=== PATIENT | female | born 1980 | race Caucasian/White ===

== ENCOUNTER 2020-04-14 11:03 | Emergency (ER) | payer OTHER ==
[2020-04-14 11:30] VITALS: RESP 18
[2020-04-14 11:55] LABS: Appearance,Urine Clear (Clear); Bilirubin,Urine Negative (Negative); Blood,Urine Negative (Negative); Color,Urine Yellow; Glucose,Urine (UA) Negative (Negative); Ketones,Urine Negative (Negative); Leukocyte Esterase,Urine Negative (Negative); Nitrite,Urine Negative (Negative); Protein,Urine Negative (Negative); Specific Gravity,Urine 1.009 (1.001-1.035); Urobilinogen,Urine <2.0 mg/dL (<2.0)
[2020-04-14] MEDS ORDERED: KETOROLAC 15 MG/ML 1 ML VIAL IM STA (12:18)
--- NOTE | 2020-04-14 12:25 | ED ---
General Adult HPI - General Chief complaint: Urogenital Stated complaint: possible UTI Source: patient, RN notes reviewed Mode of arrival: ambulatory Limitations: no limitations - History of Present Illness Initial comments: 39-year-old female presents to the emergency room for a chief complaint of dysuria. Patient states she has had pain with urination for about 2 weeks. Pat ient states she was on Cipro for 3 days and then Macrobid for 7 days. Patient states these are not helping and it is getting worse. Patient denies abdominal pain or back pain. Denies fevers or chills.Patient has no other complaints at this time including shortness of breath, chest pain, abdominal pain, nausea or vomiting, headache, or visual changes. - Related Data Home Medications Medication Instructions Recorded Confirmed Gabapentin [Neurontin] 800 mg PO TID 04/14/20 04/14/20 Nitrofurantoin Macrocrystal 100 mg PO BID 04/14/20 04/14/20 [Nitrofurantoin] Previous Rx's Medication Instructions Recorded Phenazopyridine HCl [Pyridium] 100 mg PO TID #9 tab 04/14/20 Allergies Allergy/AdvReac Type Severity Reaction Status Date / Time No Known Allergies Allergy Verified 04/14/20 12:07 Review of Systems ROS Statement: Those systems with pertinent positive or pertinent negative responses have been documented in the HPI. ROS Other: All systems not noted in ROS Statement are negative. Past Medical History Past Medical History: No Reported History History of Any Multi-Drug Resistant Organisms: None Reported Past Surgical History: Cholecystectomy Additional Past Surgical History / Comment(s): stent in right kidney, left ovary and left fallopian tube removed Past Psychological History: No Psychological Hx Reported Smoking Status: Current every day smoker Past Alcohol Use History: None Reported Past Drug Use History: None Reported General Exam Limitations: no limitations General appearance: alert, in no apparent distress Head exam: Present: atraumatic, normocephalic, normal inspection Eye exam: Present: normal appearance, PERRL, EOMI. Absent: scleral icterus, conjunctival injection ENT exam: Present: normal exam, mucous membranes moist Neck exam: Present: normal inspection, full ROM. Absent: tenderness Respiratory exam: Present: normal lung sounds bilaterally. Absent: respiratory distress, wheezes Cardiovascular Exam: Present: regular rate, normal rhythm, normal heart sounds GI/Abdominal exam: Present: soft, normal bowel sounds. Absent: distended, tenderness External exam: Present: normal external exam, other (Michelle camara present for examination as instructional paraprofessional). Absent: erythema, swelling, lesions, lacerations, ecchymosis Speculum exam: Present: normal speculum exam. Absent: erythema, vaginal discharge, cervical discharge, vaginal bleeding, foreign body, tissue, laceration By manual exam: Present: uterine tenderness. Absent: normal by manual exam, c ervical motion tenderness, adnexal tenderness, adnexal mass, uterine enlargement Neurological exam: Present: alert Course Vital Signs 04/14/20 04/14/20 11:11 12:26 Temperature 97.9 F Pulse Rate 89 75 Respiratory 18 18 Rate Blood Pressure 119/84 144/95 O2 Sat by Pulse 97 97 Oximetry Medical Decision Making - Medical Decision Making Vitals are stable. Patient is well appearing. There is no abdominal tenderness. Pelvic exam appears normal. No external lesions. Her analysis is unremarkable. HCG is negative. Patient was arty [place] 2 rounds of antibiotics. I do not see any obvious evidence of urinary tract infection however culture was sent. I did test patient for gonorrhea chlamydia Trichomonas. Patient does agree to empiric treatment of stds. Patient will be given Pyridium as this did help her a few weeks ago. I will give patient a urology referral as well. She will return here for any worsening symptoms. I discussed this case with attending Dr. Ott who agrees with this assessment and treatment plan. - Lab Data Lab Results 04/14/20 04/14/20 Range/Units 11:40 11:42 Urine Color Yellow Urine Appearance Clear (Clear) Urine pH 7.0 (5.0-8.0) Ur Specific [place] 1.009 (1.001-1.035) Urine Protein Negative (Negative) Urine Glucose (UA) Negative (Negative) Urine Ketones Negative (Negative) Urine Blood Negative (Negative) Urine Nitrite Negative (Negative) Urine Bilirubin Negative (Negative) Urine Urobilinogen <2.0 (<2.0) mg/dL Ur Leukocyte Esterase Negative (Negative) Urine HCG, Qual Not Detected (Not Detectd) Disposition Clinical Impression: Dysuria Disposition: HOME SELF-CARE Condition: Good Instructions (If sedation given, give patient instructions): Dysuria (ED) Additional Instructions: Please take high radium as directed. Please follow-up on culture and testing results. Follow-up with urology. If you have any other worsening symptoms return to the emergency room. Prescriptions: Phenazopyridine HCl [Pyridium] 100 mg PO TID #9 tab Is patient prescribed a controlled substance at d/c from ED?: No Referrals: Courtney Muñoz MD [Primary Care Provider] - 1-2 days Esdras Curry MD [STAFF PHYSICIAN] - 1-2 days Time of Disposition: 12:45
[2020-04-14] MEDS ORDERED: cefTRIAXone 250 MG VIAL IM STA (12:39)
[2020-04-14] MEDS ORDERED: PHENAZOPYRIDINE 100 MG TAB PO STA (13:06)
[2020-04-14] MEDS ORDERED: DOXYCYCLINE 100 MG CAP PO STA (13:06)
[2020-04-14 13:27] VITALS: BP 129/84; PULSE 70; TEMP 97.8
[2020-04-15 13:02] LABS: C. trachomatis,PCR Negative (Neg,Equiv); Chlamydia trachomatis Source Vagina; N. gonorrhoeae,PCR Negative (Neg,Equiv); Neisseria Source Vagina
== END 2020-04-14 13:25 | disposition home or self-care (01) ==
LOC: EC 11:03
DX: R30.0 Dysuria (principal); F17.200 Nicotine dependence, unspecified, uncomplicated; Z79.899 Other long term (current) drug therapy; Z96.0 Presence of urogenital implants
CPT/HCPCS: 81003; 81025; 87808; 87491; 87591; 87086; 99283; 96372 ×2; J0696; J1885

== ENCOUNTER 2020-04-20 19:56 | Emergency (ER) | payer OTHER ==
[2020-04-20 20:17] VITALS: TEMP 98.3
[2020-04-20] MEDS ORDERED: SODIUM CHLORIDE 0.9% 1,000 ML IV STA (20:21)
[2020-04-20] MEDS ORDERED: ONDANSETRON 4 MG/2 ML VIAL IVP STA (20:21)
[2020-04-20] MEDS ORDERED: cefTRIAXone IN SWFI 1,000 MG/10 ML SYRINGE IVP STA (20:46)
--- NOTE | 2020-04-20 21:03 | ED ---
Female Urogenital HPI - General Chief complaint: Urogenital Stated complaint: Female [facility] Time Seen by Provider: 04/20/20 20:19 Source: patient Mode of arrival: ambulatory Limitations: no limitations - History of Present Illness Initial comments: 39-year-old female presents emergency Department with a chief complaint of low back pain and painful urination. She does have history of pyelonephritis and states this feels somewhat like it. Patient reports symptoms ongoing for about 6 weeks. She does report dysuria along with increased urgency or frequency but she also appears to have obstructive urinary symptoms like dribbling and not fully emptying. LMP Was over 2 months ago and there is a possibility for according to the patient. She is not concerned for STDs at this time. She reports being diagnosed with urinary tract infection per primary care physician about 6 weeks ago and was started on Cipro. She was then evaluated in this emergency department and was treated for STDs with Flagyl. Her symptoms are not improved. She denies any hematuria, medication or melena. Denies any vaginal discharge, bleeding, foul smell or itching. Does report some suprapubic abdominal pain. Also reports right-sided lower back pain. Does report chills but no fevers. Denies any nausea vomiting or diarrhea. Denies any chest pain or shortness of breath. She has an appointment with urology and 6 days. Last Menstrual Period: 02/02/20 - Related Data Home Medications Medication Instructions Recorded Confirmed Gabapentin [Neurontin] 800 mg PO TID 04/14/20 04/20/20 Phenazopyridine HCl [Pyridium] 100 mg PO TID PRN 04/20/20 04/20/20 Previous Rx's Medication Instructions Recorded Doxycycline [Vibramycin] 100 mg PO BID 7 Days #14 capsule 04/14/20 Phenazopyridine HCl [Pyridium] 100 mg PO TID #30 tab 04/21/20 Allergies Allergy/AdvReac Type Severity Reaction Status Date / Time No Known Allergies Allergy Verified 04/20/20 23:11 Review of Systems ROS Statement: Those systems with pertinent positive or pertinent negative responses have been documented in the HPI. ROS Other: All systems not noted in ROS Statement are negative. Past Medical History Past Medical History: No Reported History History of Any Multi-Drug Resistant Organisms: None Reported Past Surgical History: Cholecystectomy Additional Past Surgical History / Comment(s): stent in right kidney, left ovary and left fallopian tube removed Past Psychological History: Anxiety Smoking Status: Current every day smoker Past Alcohol Use History: None Reported Past Drug Use History: None Reported General Exam Limitations: no limitations General appearance: alert, in no apparent distress Head exam: Present: atraumatic, normocephalic, normal inspection Eye exam: Present: normal appearance, PERRL, EOMI Pupils: Present: normal accommodation ENT exam: Present: normal exam, normal oropharynx, mucous membranes moist, TM's normal bilaterally, normal external ear exam Neck exam: Present: normal inspection, full ROM. Absent: tenderness Respiratory exam: Present: normal lung sounds bilaterally. Absent: respiratory distress Cardiovascular Exam: Present: regular rate, normal rhythm, normal heart sounds GI/Abdominal exam: Present: soft, tenderness (Mild suprapubic tenderness). Absent: distended, guarding, rebound, rigid Extremities exam: Present: normal inspection, full ROM, normal capillary refill. Absent: tenderness Back exam: Present: normal inspection, full ROM, tenderness, CVA tenderness (R). Absent: CVA tenderness (L) Neurological exam: Present: alert, oriented X3, CN II-XII intact, normal gait Psychiatric exam: Present: normal affect, normal mood Skin exam: Present: warm, dry, intact, normal color Course Vital Signs 04/20/20 20:13 Temperature 98.3 F Pulse Rate 88 Respiratory 18 Rate Blood Pressure 130/89 O2 Sat by Pulse 95 Oximetry Medical Decision Making - Medical Decision Making 39-year-old female presents to emergency Department with chief complaint of dysuria. On physical examination some right CVA tenderness with suprapubic tenderness as well. CBC unremarkable. CMP reveals mild transaminitis. UA is positive for leukocyte esterase, white blood cells on her blood cells with moderate amount of blood. No . CT abdomen and pelvis performed shows a right ovarian cyst. There is a possible urethral diverticulum appears to be new compared to old exam. Unusual cystocele is also possible. Patient was offered pelvic examination, she declined. Medical records reviewed. The patient received a pelvic exam during her most recent visit from about one week ago with no acute findings. I suspect the patient's symptoms are secondary to urethral diverticulum. Patient really has an appointment in 6 days to follow-up with a urologist. Patient was given analgesia and will be discharged with a Tylenol 3 starter pack and Pyridium. Return parameters discussed the patient was understanding ago. Case discussed with - Lab Data Result diagrams: 04/20/20 21:52 04/20/20 21:52 Lab Results 04/20/20 04/20/20 04/20/20 Range/Units 21:17 21:17 21:52 WBC 8.0 (3.8-10.6) k/uL RBC 5.14 (3.80-5.40) m/uL Hgb 13.5 (11.4-16.0) gm/dL Hct 42.1 (34.0-46.0) % MCV 81.9 (80.0-100.0) fL MCH 26.2 (25.0-35.0) pg MCHC 32.0 (31.0-37.0) g/dL RDW 15.3 (11.5-15.5) % Plt Count 215 (150-450) k/uL MPV 8.9 Neutrophils % 55 % Lymphocytes % 32 % Monocytes % 7 % Eosinophils % 4 % Basophils % 0 % Neutrophils # 4.3 (1.3-7.7) k/uL Lymphocytes # 2.6 (1.0-4.8) k/uL Monocytes # 0.5 (0-1.0) k/uL Eosinophils # 0.3 (0-0.7) k/uL Basophils # 0.0 (0-0.2) k/uL Sodium (137-145) mmol/L Potassium (3.5-5.1) mmol/L Chloride (98-107) mmol/L Carbon Dioxide (22-30) mmol/L Anion Gap mmol/L BUN (7-17) mg/dL Creatinine (0.52-1.04) mg/dL Est GFR (CKD-EPI)AfAm (>60 ml/min/1.73 sqM) Est GFR (CKD-EPI)NonAf (>60 ml/min/1.73 sqM) Glucose (74-99) mg/dL Plasma Lactic Acid J Luis (0.7-2.0) mmol/L Calcium (8.4-10.2) mg/dL Total Bilirubin (0.2-1.3) mg/dL AST (14-36) U/L ALT (4-34) U/L Alkaline Phosphatase (38-126) U/L Total Protein (6.3-8.2) g/dL Albumin (3.5-5.0) g/dL Lipase (23-300) U/L Urine Color Yellow Urine Appearance Cloudy H (Clear) Urine pH 6.5 (5.0-8.0) Ur Specific [place] 1.016 (1.001-1.035) Urine Protein Trace H (Negative) Urine Glucose (UA) Negative (Negative) Urine Ketones Negative (Negative) Urine Blood Moderate H (Negative) Urine Nitrite Negative (Negative) Urine Bilirubin Negative (Negative) Urine Urobilinogen 2.0 (<2.0) mg/dL Ur Leukocyte Esterase Large H (Negative) Urine RBC 8 H (0-5) /hpf Urine WBC 14 H (0-5) /hpf Ur Squamous Epith Cells 26 H (0-4) /hpf Urine Bacteria Rare H (None) /hpf Urine Mucus Occasional H (None) /hpf Urine HCG, Qual Not Detected (Not Detectd) 04/20/20 04/20/20 Range/Units 21:52 21:52 WBC (3.8-10.6) k/uL RBC (3.80-5.40) m/uL Hgb (11.4-16.0) gm/dL Hct (34.0-46.0) % MCV (80.0-100.0) fL MCH (25.0-35.0) pg MCHC (31.0-37.0) g/dL RDW (11.5-15.5) % Plt Count (150-450) k/uL MPV Neutrophils % % Lymphocytes % % Monocytes % % Eosinophils % % Basophils % % Neutrophils # (1.3-7.7) k/uL Lymphocytes # (1.0-4.8) k/uL Monocytes # (0-1.0) k/uL Eosinophils # (0-0.7) k/uL Basophils # (0-0.2) k/uL Sodium 136 L (137-145) mmol/L Potassium 4.3 (3.5-5.1) mmol/L Chloride 103 (98-107) mmol/L Carbon Dioxide 26 (22-30) mmol/L Anion Gap 7 mmol/L BUN 10 (7-17) mg/dL Creatinine 0.41 L (0.52-1.04) mg/dL Est GFR (CKD-EPI)AfAm >90 (>60 ml/min/1.73 sqM) Est GFR (CKD-EPI)NonAf >90 (>60 ml/min/1.73 sqM) Glucose 93 (74-99) mg/dL Plasma Lactic Acid J Luis 1.2 (0.7-2.0) mmol/L Calcium 9.3 (8.4-10.2) mg/dL Total Bilirubin 0.7 (0.2-1.3) mg/dL AST 48 H (14-36) U/L ALT 63 H (4-34) U/L Alkaline Phosphatase 203 H (38-126) U/L Total Protein 7.3 (6.3-8.2) g/dL Albumin 3.9 (3.5-5.0) g/dL Lipase 164 (23-300) U/L Urine Color Urine Appearance (Clear) Urine pH (5.0-8.0) Ur Specific [place] (1.001-1.035) Urine Protein (Negative) Urine Glucose (UA) (Negative) Urine Ketones (Negative) Urine Blood (Negative) Urine Nitrite (Negative) Urine Bilirubin (Negative) Urine Urobilinogen (<2.0) mg/dL Ur Leukocyte Esterase (Negative) Urine RBC (0-5) /hpf Urine WBC (0-5) /hpf Ur Squamous Epith Cells (0-4) /hpf Urine Bacteria (None) /hpf Urine Mucus (None) /hpf Urine HCG, Qual (Not Detectd) Disposition Clinical Impression: Urethral diverticulum, Dysuria Disposition: HOME SELF-CARE Condition: Stable Instructions (If sedation given, give patient instructions): Urethral Stent Placement (DC) Additional Instructions: Follow-up with urology. Take prescribed medication as directed. Return to emergency department if symptoms worsen. Prescriptions: Phenazopyridine HCl [Pyridium] 100 mg PO TID #30 tab Is patient prescribed a controlled substance at d/c from ED?: No Referrals: Courtney Muñoz MD [Primary Care Provider] - 1-2 days Time of Disposition: 00:08
[2020-04-20 21:27] LABS: Appearance,Urine Cloudy (Clear); Bacteria,Urine Rare /hpf; Bilirubin,Urine Negative (Negative); Blood,Urine Moderate (Negative); Color,Urine Yellow; Glucose,Urine (UA) Negative (Negative); Ketones,Urine Negative (Negative); Leukocyte Esterase,Urine Large (Negative); Mucus,Urine Occasional /hpf; Nitrite,Urine Negative (Negative); PH, Urine 6.5 (5.0-8.0); Protein,Urine Trace (Negative); RBC,Urine 8 /hpf (0-5); Specific Gravity,Urine 1.016 (1.001-1.035); Squamous Epithelial Cell,Urine 26 /hpf (0-4); WBC,Urine 14 /hpf (0-5)
[2020-04-20] MEDS ORDERED: MORPHINE SULFATE 4 MG/ML SYRINGE IVP STA (21:57)
[2020-04-20 22:19] LABS: Basophils % (A) 0 %; Eosinophils # (A) 0.3 k/uL (0-0.7); Eosinophils % (A) 4 %; HCT 42.1 % (34.0-46.0); HGB 13.5 gm/dL (11.4-16.0); Lymphocytes # (A) 2.6 k/uL (1.0-4.8); Lymphocytes % (A) 32 %; MCH 26.2 pg (25.0-35.0); MCV 81.9 fL (80.0-100.0); Mean Platelet Volume 8.9; Monocytes # (A) 0.5 k/uL (0-1.0); Monocytes % (A) 7 %; Neutrophils # (A) 4.3 k/uL (1.3-7.7); Neutrophils % (A) 55 %; Platelet Count 215 k/uL (150-450); RBC 5.14 m/uL (3.80-5.40); RDW 15.3 % (11.5-15.5)
[2020-04-20 22:38] LABS: ALT 63 U/L (4-34); AST 48 U/L (14-36); African American GFR (CKD) >90 (>60 ml/min/1.73 sqM); Albumin 3.9 g/dL (3.5-5.0); Alkaline Phosphatase 203 U/L (38-126); Anion Gap 7 mmol/L; Blood Urea Nitrogen 10 mg/dL (7-17); Calcium 9.3 mg/dL (8.4-10.2); Carbon Dioxide 26 mmol/L (22-30); Chloride 103 mmol/L (98-107); Glucose 93 mg/dL (74-99); Lipase 164 U/L (23-300); Non-African American GFR(CKD) >90 (>60 ml/min/1.73 sqM); Potassium 4.3 mmol/L (3.5-5.1); Sodium 136 mmol/L (137-145); Total Bilirubin 0.7 mg/dL (0.2-1.3); Total Protein 7.3 g/dL (6.3-8.2)
[2020-04-20] MEDS ORDERED: PHENAZOPYRIDINE 200 MG TAB PO STA (22:59)
--- NOTE | 2020-04-20 23:38 | CT ---
EXAMINATION TYPE: CT abdomen pelvis w con DATE OF EXAM: 04/20/2020 COMPARISON: 11/20/2014 HISTORY: pelvic pain CT DLP: 1292 mGycm Automated exposure control for dose reduction was used. CONTRAST: Performed with IV Contrast, patient injected with 100 mL of Isovue 300. Images obtained from the diaphragm to the floor the pelvis with IV contrast. The lung bases are clear of consolidation. There is no pleural effusion. Spleen is enlarged and measu res 15 cm. Liver is intact. Heart size is normal. There is no pericardial effusion. There are clips from cholecystectomy. There is no pancreatic mass. The stomach is intact. There is no adrenal mass. Kidneys show satisfactory contrast opacification. There is no hydronephrosi s. Ureters are not dilated. There is no retroperitoneal adenopathy. The bladder distends smoothly. There is no inguinal hernia. There is no free fluid in the pelvis. [place] dominic is anteverted. There is 4 cm cyst on the right ovary. There is some cystic fluid collection at th e base of the urinary bladder that could relate to urethral diverticula. This measures 2.2 cm. Lumbar vertebra have normal alignment. There is narrowing of L5-S1 disc space with vacuum disc. There is no compression fracture. The bony pelvis is intact. There is no ascites or free air. There is no bowel obstruction. There is no mesenteric edema. Appendi x is not seen. There is no sign of thickened appendix. IMPRESSION: Mild splenomegaly. Right ovarian cyst. Possible urethral diverticula which appear new compared to old exam. Unusual cystocele also possible.
[2020-04-21] MEDS ORDERED: ACET/COD 300 MG/30 MG STARTER PACK 6 TAB BTL PO STA (00:06)
[2020-04-21] MEDS ORDERED: HYDROmorphone 1 MG/ML 1 ML SYRINGE IVP STA (00:06)
[2020-04-21 00:23] VITALS: BP 133/72; PULSE 75; RESP 16
== END 2020-04-21 00:23 | disposition home or self-care (01) ==
LOC: EC 19:56
DX: N36.1 Urethral diverticulum (principal); F17.200 Nicotine dependence, unspecified, uncomplicated; Z90.49 Acquired absence of other specified parts of digestive tract; Z90.721 Acquired absence of ovaries, unilateral; Z90.79 Acquired absence of other genital organ(s)
CPT/HCPCS: 36415; 80053; 83605; 83690; 85025; 81001; 81025; 87040; 87086; 74177; 99284; 96374; 96375 ×3; 96361 ×2; J2270; J2405; J0696; J1170; Q9967

== ENCOUNTER 2020-11-22 07:33 | Emergency (ER) | payer OTHER ==
[2020-11-22 07:43] VITALS: RESP 18
[2020-11-22] MEDS ORDERED: cefTRIAXone IN SWFI 1,000 MG/10 ML SYRINGE IVP STA ×2 (07:46→08:58)
[2020-11-22] MEDS ORDERED: IBUPROFEN 600 MG TAB PO STA (07:46)
[2020-11-22] MEDS ORDERED: ACETAMINOPHEN TAB 500 MG TAB PO STA (07:46)
[2020-11-22] MEDS ORDERED: SODIUM CHLORIDE 0.9% 1,000 ML IV ONE (07:47)
--- NOTE | 2020-11-22 07:51 | ED ---
General Adult HPI - General Chief complaint: Abdominal Pain Stated complaint: Fever, abd and back pain Time Seen by Provider: 11/22/20 07:35 Source: patient, RN notes reviewed, old records reviewed Mode of arrival: ambulatory Limitations: no limitations - History of Present Illness Initial comments: This is a 40-year-old female presents emergency Department complaining of fever and right CVA tenderness. Patient states she was in rehabilitation for opiate abuse 5 days ago she was diagnosed with UTI never got her antibiotics. Patient states since that time she's continued to feel worse per patient denies any abdominal pain but she does complain of CVA tenderness on the right and urinary frequency as well as a fever. Patient denies any chest pain difficult breathing shortness of breath per patient states she was recently tested for COVID and it was negative. Patient did not get the COVID vaccine. Patient denies any cough patient. Patient denies sore throat patient denies any loss of taste or smell. - Related Data Home Medications Medication Instructions Recorded Confirmed Gabapentin [Neurontin] 800 mg PO TID 04/14/20 04/20/20 Phenazopyridine HCl [Pyridium] 100 mg PO TID PRN 04/20/20 04/20/20 Previous Rx's Medication Instructions Recorded Doxycycline [Vibramycin] 100 mg PO BID 7 Days #14 capsule 04/14/20 Phenazopyridine HCl [Pyridium] 100 mg PO TID #30 tab 04/21/20 Sulfamethox-Tmp 800-160Mg [Bactrim 1 each PO Q12HR #28 tab 11/22/20 DS 800-160 mg] Allergies Allergy/AdvReac Type Severity Reaction Status Date / Time No Known Allergies Allergy Verified 11/22/20 07:39 Review of Systems ROS Statement: Those systems with pertinent positive or pertinent negative responses have been documented in the HPI. ROS Other: All systems not noted in ROS Statement are negative. Past Medical History Past Medical History: No Reported History History of Any Multi-Drug Resistant Organisms: None Reported Past Surgical History: Cholecystectomy Additional Past Surgical History / Comment(s): stent in right kidney, left ovary and left fallopian tube removed Past Psychological History: Anxiety Smoking Status: Current every day smoker Past Alcohol Use History: None Reported Past Drug Use History: None Reported General Exam - General Exam Comments Initial Comments: GENERAL: Patient is well-developed and well-nourished. Patient is nontoxic and well- hydrated and is in mild distress. ENT: Neck is soft and supple. No significant lymphadenopathy is noted. Oropharynx is clear. Moist mucous membranes. Neck has full range of motion without eliciting any pain. EYES: The sclera were anicteric and conjunctiva were pink and moist. Extraocular movements were intact and pupils were equal round and reactive to light. Eyelids were unremarkable. PULMONARY: Unlabored respirations. Good breath sounds bilaterally. No audible rales rhonchi or wheezing was noted. CARDIOVASCULAR: There is a regular rate and rhythm without any murmurs gallops or rubs. ABDOMEN: Soft and nontender with normal bowel sounds. SKIN: Skin is clear with no lesions or rashes and otherwise unremarkable. NEUROLOGIC: Patient is alert and oriented x3. Cranial nerves II through XII are grossly intact. Motor and sensory are also intact. Normal speech, volume and content. Symmetrical smile. MUSCULOSKELETAL: Normal extremities with adequate strength and full range of motion. Patient's right CVA tenderness. LYMPHATICS: No significant lymphadenopathy is noted PSYCHIATRIC: Normal psychiatric evaluation. Limitations: no limitations Course Vital Signs 11/22/20 07:35 Temperature 100.9 F H Pulse Rate 129 H Respiratory 18 Rate Blood Pressure 109/60 O2 Sat by Pulse 95 Oximetry Medical Decision Making - Medical Decision Making Patient's urine shows a urinary tract infection. I gave the patient 2 g of Rocephin. Patient was not vomiting was able to tolerate oral meds. Patient was discharged home with antibiotics. - Lab Data Result diagrams: 11/22/20 07:57 11/22/20 07:57 Lab Results 11/22/20 11/22/20 11/22/20 Range/Units 07:57 07:57 07:57 WBC 13.7 H (3.8-10.6) k/uL RBC 5.26 (3.80-5.40) m/uL Hgb 14.7 (11.4-16.0) gm/dL Hct 45.6 (34.0-46.0) % MCV 86.8 (80.0-100.0) fL MCH 27.9 (25.0-35.0) pg MCHC 32.2 (31.0-37.0) g/dL RDW 13.0 (11.5-15.5) % Plt Count 166 (150-450) k/uL MPV 8.4 Neutrophils % 82 % Lymphocytes % 10 % Monocytes % 6 % Eosinophils % 1 % Basophils % 0 % Neutrophils # 11.3 H (1.3-7.7) k/uL Lymphocytes # 1.3 (1.0-4.8) k/uL Monocytes # 0.8 (0-1.0) k/uL Eosinophils # 0.1 (0-0.7) k/uL Basophils # 0.0 (0-0.2) k/uL Sodium 134 L (137-145) mmol/L Potassium 4.3 (3.5-5.1) mmol/L Chloride 102 (98-107) mmol/L Carbon Dioxide 23 (22-30) mmol/L Anion Gap 9 mmol/L BUN 9 (7-17) mg/dL Creatinine 0.60 (0.52-1.04) mg/dL Est GFR (CKD-EPI)AfAm >90 (>60 ml/min/1.73 sqM) Est GFR (CKD-EPI)NonAf >90 (>60 ml/min/1.73 sqM) Glucose 124 H (74-99) mg/dL Calcium 9.1 (8.4-10.2) mg/dL Total Bilirubin 1.2 (0.2-1.3) mg/dL AST 89 H (14-36) U/L ALT 111 H (4-34) U/L Alkaline Phosphatase 173 H (38-126) U/L Total Protein 6.9 (6.3-8.2) g/dL Albumin 3.9 (3.5-5.0) g/dL Urine Color Yellow Urine Appearance Turbid H (Clear) Urine pH 5.5 (5.0-8.0) Ur Specific [place] 1.018 (1.001-1.035) Urine Protein 2+ H (Negative) Urine Glucose (UA) Negative (Negative) Urine Ketones Negative (Negative) Urine Blood Small H (Negative) Urine Nitrite Negative (Negative) Urine Bilirubin Negative (Negative) Urine Urobilinogen 3.0 (<2.0) mg/dL Ur Leukocyte Esterase Large H (Negative) Urine RBC 31 H (0-5) /hpf Urine WBC >182 H (0-5) /hpf Urine WBC Clumps Few H (None) /hpf Ur Squamous Epith Cells 191 H (0-4) /hpf Urine Bacteria Many H (None) /hpf Urine Mucus Few H (None) /hpf Disposition Clinical Impression: Pyelonephritis Disposition: HOME SELF-CARE Condition: Good Instructions (If sedation given, give patient instructions): Kidney Infection (ED) Prescriptions: Sulfamethox-Tmp 800-160Mg [Bactrim DS 800-160 mg] 1 each PO Q12HR #28 tab Is patient prescribed a controlled substance at d/c from ED?: No Referrals: Darren Hannon MD [Primary Care Provider] - 1-2 days Time of Disposition: 08:59
[2020-11-22 08:15] LABS: Basophils % (A) 0 %; Eosinophils # (A) 0.1 k/uL (0-0.7); Eosinophils % (A) 1 %; HCT 45.6 % (34.0-46.0); HGB 14.7 gm/dL (11.4-16.0); Lymphocytes # (A) 1.3 k/uL (1.0-4.8); Lymphocytes % (A) 10 %; MCH 27.9 pg (25.0-35.0); MCHC 32.2 g/dL (31.0-37.0); MCV 86.8 fL (80.0-100.0); Mean Platelet Volume 8.4; Monocytes # (A) 0.8 k/uL (0-1.0); Monocytes % (A) 6 %; Neutrophils # (A) 11.3 k/uL (1.3-7.7); Neutrophils % (A) 82 %; Platelet Count 166 k/uL (150-450); RBC 5.26 m/uL (3.80-5.40); WBC 13.7 k/uL (3.8-10.6)
[2020-11-22 08:33] LABS: Appearance,Urine Turbid (Clear); Bacteria,Urine Many /hpf; Bilirubin,Urine Negative (Negative); Blood,Urine Small (Negative); Color,Urine Yellow; Glucose,Urine (UA) Negative (Negative); Ketones,Urine Negative (Negative); Leukocyte Esterase,Urine Large (Negative); Mucus,Urine Few /hpf; Nitrite,Urine Negative (Negative); PH, Urine 5.5 (5.0-8.0); Protein,Urine 2+ (Negative); RBC,Urine 31 /hpf (0-5); Specific Gravity,Urine 1.018 (1.001-1.035); Squamous Epithelial Cell,Urine 191 /hpf (0-4); WBC,Urine >182 /hpf (0-5)
[2020-11-22 08:40] LABS: ALT 111 U/L (4-34); AST 89 U/L (14-36); African American GFR (CKD) >90 (>60 ml/min/1.73 sqM); Albumin 3.9 g/dL (3.5-5.0); Alkaline Phosphatase 173 U/L (38-126); Anion Gap 9 mmol/L; Blood Urea Nitrogen 9 mg/dL (7-17); Calcium 9.1 mg/dL (8.4-10.2); Carbon Dioxide 23 mmol/L (22-30); Chloride 102 mmol/L (98-107); Glucose 124 mg/dL (74-99); Non-African American GFR(CKD) >90 (>60 ml/min/1.73 sqM); Potassium 4.3 mmol/L (3.5-5.1); Sodium 134 mmol/L (137-145); Total Bilirubin 1.2 mg/dL (0.2-1.3); Total Protein 6.9 g/dL (6.3-8.2)
[2020-11-22 09:43] VITALS: BP 120/74; PULSE 101; TEMP 97.9
== END 2020-11-22 09:43 | disposition home or self-care (01) ==
LOC: EC 07:33
DX: N12 Tubulo-interstitial nephritis, not specified as acute or chronic (principal); Z90.49 Acquired absence of other specified parts of digestive tract; F41.9 Anxiety disorder, unspecified; F17.200 Nicotine dependence, unspecified, uncomplicated
CPT/HCPCS: 99283; 96374; 96361; 36415; 80053; 85025; 81001; 87086; J0696

== ENCOUNTER 2023-08-31 23:30 | Inpatient (IN) | payer OTHER ==
--- NOTE | 2023-09-01 00:34 | ED ---
General Adult HPI - General Chief complaint: Psychiatric Symptoms Stated complaint: Mental Health Time Seen by Provider: 08/31/23 23:39 Source: patient Mode of arrival: wheelchair Limitations: no limitations - History of Present Illness Initial comments: Dictation was produced using [employer] dictation software. please excuse any grammatical, word or spelling errors. Chief Complaint: 42-year-old female presents to the ER for altered mental status History of Present Illness: Patient is a 42-year-old female she is accompanied by her children. Her son and daughter are at the bedside. Patient apparently has been sleeping and making all of these strange claims talking about the holocaust. Patient is history of heroin use. She has not used heroin for several days she has multiple wounds on her lower extremities there is a what appears to be necrotic wound on her right knee. Since being in the ER patient has been refusing to talk. The ROS documented in this emergency department record has been reviewed and confirmed by me. Those systems with pertinent positive or negative responses have been documented in the HPI. All other systems are other negative and/or noncontributory. - Related Data Home Medications Medication Instructions Recorded Confirmed Gabapentin [Neurontin] 800 mg PO TID 04/14/20 04/20/20 Phenazopyridine HCl [Pyridium] 100 mg PO TID PRN 04/20/20 04/20/20 Previous Rx's Medication Instructions Recorded Doxycycline [Vibramycin] 100 mg PO BID 7 Days #14 capsule 04/14/20 Phenazopyridine HCl [Pyridium] 100 mg PO TID #30 tab 04/21/20 Sulfamethox-Tmp 800-160Mg [Bactrim 1 each PO Q12HR #28 tab 11/22/20 DS 800-160 mg] Ibuprofen [Motrin] 800 mg PO Q8HR PRN #30 tab 10/22/22 Allergies Allergy/AdvReac Type Severity Reaction Status Date / Time No Known Allergies Allergy Verified 08/31/23 23:38 Review of Systems ROS Statement: Those systems with pertinent positive or pertinent negative responses have been documented in the HPI. ROS Other: All systems not noted in ROS Statement are negative. Past Medical History Past Medical History: No Reported History Additional Past Medical History / Comment(s): Heroin drug use, withdrawal seizures History of Any Multi-Drug Resistant Organisms: None Reported Past Surgical History: Cholecystectomy, Tubal Ligation Additional Past Surgical History / Comment(s): stent in right kidney, left ovary and left fallopian tube removed Past Psychological History: Anxiety Smoking Status: Current every day smoker Past Alcohol Use History: None Reported Past Drug Use History: None Reported General Exam - General Exam Comments Initial Comments: PHYSICAL EXAM: General Impression: Alert, not speaking, uncooperative HEENT: Normocephalic atraumatic, extra-ocular movements intact, pupils equal and reactive to light bilaterally, mucous membranes moist. Cardiovascular: Heart regular rate and rhythm Chest: no retractions, no tachypnea Abdomen: abdomen soft, non-tender, non-distended, no organomegaly Musculoskeletal: Pulses present and equal in all extremities, no peripheral ed radha Motor: no focal deficits noted Neurological: CN II-XII grossly intact, no focal motor or sensory deficits noted Skin: Large ecchymotic erythematous area over the right patella Limitations: no limitations Course Vital Signs 08/31/23 09/01/23 09/01/23 23:32 01:24 02:25 Temperature 99.3 F Pulse Rate 119 H 88 92 Respiratory 20 18 18 Rate Blood Pressure 95/71 129/84 113/79 O2 Sat by Pulse 96 98 96 Oximetry 09/01/23 03:00 Temperature Pulse Rate 90 Respiratory 18 Rate Blood Pressure 110/77 O2 Sat by Pulse 95 Oximetry EKG Findings - EKG Comments: EKG Findings:: My EKG interpretation: Ventricular rate 79, sinus rhythm,. 147, cures 90, QTc 445. No [place] prolongation, no QTC prolongation, no ST or T-wave ch anges noted. Overall, this EKG is unremarkable Medical Decision Making - Medical Decision Making Was pt. sent in by a medical professional or institution (, PA, BRUSH HOLDER INSPECTOR, urgent care, hospital, or care home...) When possible be specific @ -No Did you speak to anyone other than the patient for history (EMS, parent, family, police, friend...)? What history was obtained from this source @ -History obtained from children of the patient as described above Did you review nursing and triage notes (agree or disagree)? Why? @ -I reviewed and agree with nursing and triage notes Were old charts reviewed (outside hosp., previous admission, EMS record, old EKG, old radiological studies, urgent care reports/EKG's, care home records)? Report findings @ -No old charts were reviewed Differential Diagnosis (chest pain, altered mental status, abdominal pain women, abdominal pain men, vaginal bleeding, musculoskeletal, weakness, fever, dyspnea , syncope, headache, dizziness, GI bleed, back pain, seizure, CVA, palpatations, mental health)? @ -Differential Altered Mental Status: Hypoglycemia, DKA, hypercapnia, ETOH, overdose, CO poisoning, trauma, myxedema coma, HTN encephalopathy, infection, encephalitis, psychosis, intercranial hemorrhage, hepatic encephalopathy, meningitis, CVA, this is not meant to be an all-inclusive list EKG interpreted by me (3pts min.). @ -See above X-rays interpreted by me (1pt min.). @ -None done CT interpreted by me (1pt min.). @ -CT brain is nonacute U/S interpreted by me (1pt. min.). @ -None done What testing was considered but not performed or refused? (CT, X-rays, U/S, labs)? Why? @ -None What meds were considered but not given or refused? Why? @ -None Was smoking cessation discussed for >3mins.? @ -No Were there social determinants of health that impacted care today? How? (Homelessness, low income, unemployed, alcoholism, drug addiction, transportation, low edu. Level, literacy, decrease access to med. care, shelter, rehab)? @ -History of illicit drug use Was there de-escalation of care discussed even if they declined (Discuss DNR or withdrawal of care, Hospice)? DNR status @ -No What co-morbidities impacted this encounter? (DM, HTN, Smoking, COPD, CAD, Cancer, CVA, ARF, Chemo, Hep., AIDS, mental health diagnosis, sleep apnea, morbid obesity)? @ -None Was patient admitted / discharged? Hospital course, mention meds given and route, prescriptions, significant lab abnormalities, going to OR and other pertinent info. @ -42-year-old female presents emergency department for worsening altered mental status. Patient does have a history of IV drug use. She has significant bruises throughout her body. She has a notable ecchymotic wound to the right knee. Patient has been having worsening mentation changes per family. Patient uncooperative however signs that she acutely became altered. She is also been having some insomnia. Per children patient has no history of psychiatric illness. Laboratory evaluation obtained. CBC, metabolic panel is within acceptable limits. CT brain is negative. Patient will be admitted to medicine with consultation to psychiatry and neurology. Did you discuss the management of the patient with other professionals (professionals i.e. , PA, BRUSH HOLDER INSPECTOR, lab, RT, psych nurse, manager social media, congressional district aide, teacher, real estate utilization officer, patient case manager)? Give summary @ -Case discussed with hospitalist for admission Was critical care preformed (if so, how long)? @ -No Undiagnosed new problem with uncertain prognosis? @ -No Drug Therapy requiring intensive monitoring for toxicity (Heparin, Nitro, Insulin, Cardizem)? @ -No Were any procedures done? @ -No Diagnosis/symptom? Acute, or Chronic, or Acute on Chronic? Uncomplicated (without systemic symptoms) or Complicated (systemic symptoms)? @ -Altered mental status Side effects of treatment? @ -No Exacerbation, Progression, or Severe Exacerbation? @ -No Poses a threat to life or bodily function? How? (Chest pain, [place], [place], pneumonia, PE, COPD, DKA, ARF, appy, cholecystitis, CVA, Diverticulitis, Homicidal, Suicidal, threat to staff... and all critical care pts) @ -yes - Lab Data Result diagrams: 09/01/23 01:22 09/01/23 01:22 Lab Results 09/01/23 09/01/23 09/01/23 Range/Units 01:22 01:22 01:22 WBC 13.3 H (3.8-10.6) k/uL RBC 5.45 H (3.80-5.40) m/uL Hgb 15.3 (11.4-16.0) gm/dL Hct 45.6 (34.0-46.0) % MCV 83.6 (80.0-100.0) fL MCH 28.0 (25.0-35.0) pg MCHC 33.5 (31.0-37.0) g/dL RDW 12.6 (11.5-15.5) % Plt Count 237 (150-450) k/uL MPV 11.4 Neutrophils % 70 % Lymphocytes % 19 % Monocytes % 9 % Eosinophils % 1 % Basophils % 1 % Neutrophils # 9.3 H (1.3-7.7) k/uL Lymphocytes # 2.5 (1.0-4.8) k/uL Monocytes # 1.1 H (0-1.0) k/uL Eosinophils # 0.1 (0-0.7) k/uL Basophils # 0.1 (0-0.2) k/uL Sodium 139 (137-145) mmol/L Potassium 3.4 L (3.5-5.1) mmol/L Chloride 102 (98-107) mmol/L Carbon Dioxide 22 (22-30) mmol/L Anion Gap 15 mmol/L BUN 20 H (7-17) mg/dL Creatinine 0.77 (0.52-1.04) mg/dL Est GFR (CKD-EPI)AfAm >90 (>60 ml/min/1.73 sqM) Est GFR (CKD-EPI)NonAf >90 (>60 ml/min/1.73 sqM) Glucose 104 H (74-99) mg/dL Plasma Lactic Acid J Luis 1.5 (0.7-2.0) mmol/L Calcium 9.8 (8.4-10.2) mg/dL Magnesium 1.9 (1.6-2.3) mg/dL Total Bilirubin 1.1 (0.2-1.3) mg/dL AST 37 H (14-36) U/L ALT 27 (4-34) U/L Alkaline Phosphatase 147 H (38-126) U/L C-Reactive Protein 2.5 H (<1.0) mg/dL Total Protein 8.5 H (6.3-8.2) g/dL Albumin 5.0 (3.5-5.0) g/dL Disposition Clinical Impression: AMS (altered mental status) Disposition: ADMITTED IP TO THIS HOSP Condition: Fair Referrals: None,Stated [Primary Care Provider] - 1-2 days Decision Time: 05:02
[2023-09-01 01:44] LABS: Basophils # (A) 0.1 k/uL (0-0.2); Basophils % (A) 1 %; Eosinophils # (A) 0.1 k/uL (0-0.7); Eosinophils % (A) 1 %; HCT 45.6 % (34.0-46.0); HGB 15.3 gm/dL (11.4-16.0); Lymphocytes # (A) 2.5 k/uL (1.0-4.8); Lymphocytes % (A) 19 %; MCHC 33.5 g/dL (31.0-37.0); MCV 83.6 fL (80.0-100.0); Mean Platelet Volume 11.4; Monocytes # (A) 1.1 k/uL (0-1.0); Monocytes % (A) 9 %; Neutrophils # (A) 9.3 k/uL (1.3-7.7); Neutrophils % (A) 70 %; Platelet Count 237 k/uL (150-450); RBC 5.45 m/uL (3.80-5.40); RDW 12.6 % (11.5-15.5); WBC 13.3 k/uL (3.8-10.6)
[2023-09-01 02:00] LABS: ALT 27 U/L (4-34); AST 37 U/L (14-36); African American GFR (CKD) >90 (>60 ml/min/1.73 sqM); Alkaline Phosphatase 147 U/L (38-126); Anion Gap 15 mmol/L; Blood Urea Nitrogen 20 mg/dL (7-17); C Reactive Protein 2.5 mg/dL (<1.0); Calcium 9.8 mg/dL (8.4-10.2); Carbon Dioxide 22 mmol/L (22-30); Chloride 102 mmol/L (98-107); Glucose 104 mg/dL (74-99); Magnesium 1.9 mg/dL (1.6-2.3); Non-African American GFR(CKD) >90 (>60 ml/min/1.73 sqM); Potassium 3.4 mmol/L (3.5-5.1); Sodium 139 mmol/L (137-145); Total Bilirubin 1.1 mg/dL (0.2-1.3); Total Protein 8.5 g/dL (6.3-8.2)
--- NOTE | 2023-09-01 02:47 | CT ---
EXAM: CT Head Without Intravenous Contrast CLINICAL HISTORY: ITS.REASON CT Reason: ams TECHNIQUE: Axial computed tomography images of the head/brain without intravenous contrast. CTDI is 49.1 mGy and DLP is 1154.4 mGy-cm. This CT exam was performed using one or more of the following dose reduction techniques: automated exposure control, adjustment of the mA and/or kV according to patient size, and/or use of iterative reconstruction technique. COMPARISON: No relevant prior studies available. FINDINGS: Brain: No hemorrhage or mass effect. Ventricles: No hydrocephalus. Bones/joints: Unremarkable. Soft tissues: Unremarkable. Sinuses: No air fluid level. Mastoid air cells: Clear. IMPRESSION: No acute hemorrhage, hydrocephalus, or mass effect.
[2023-09-01] MEDS ORDERED: NALOXONE 0.4 MG/ML 1 ML VIAL IV PRN (04:59)
[2023-09-01] MEDS: HALOPERIDOL LACTATE 5 MG/ML 1 ML VIAL IM STA (06:57)
[2023-09-01 08:25] LABS: Appearance,Urine Cloudy (Clear); Bilirubin,Urine 1+ (Negative); Blood,Urine Trace (Negative); Color,Urine Yellow; Glucose,Urine (UA) Negative (Negative); Ketones,Urine 3+ (Negative); Leukocyte Esterase,Urine Trace (Negative); Mucus,Urine Few /hpf; Nitrite,Urine Negative (Negative); PH, Urine 6.5 (5.0-8.0); Protein,Urine 2+ (Negative); RBC,Urine 4 /hpf (0-5); Specific Gravity,Urine 1.036 (1.001-1.035); Squamous Epithelial Cell,Urine 17 /hpf (0-4); WBC,Urine 4 /hpf (0-5)
[2023-09-01 08:26] LABS: Amphetamine Screen,Urine Not Detected (NotDetected); Barbiturate Screen,Urine Not Detected (NotDetected); Benzodiazepines Screen,Urine Detected (NotDetected); Cocaine Screen,Urine Not Detected (NotDetected); Methadone Screen, Urine Not Detected (NotDetected); Opiate Screen,Urine Not Detected (NotDetected); Oxycodone Screen, Urine Not Detected (NotDetected); Phencyclidine Screen,Urine Not Detected (NotDetected); Tricyclic Antidepressant,Urine Not Detected (NotDetected); Urn Cannabinoid Scrn Detected (NotDetected)
[2023-09-01] MEDS ORDERED: HALOPERIDOL LACTATE 5 MG/ML 1 ML VIAL IM PRN (09:54)
[2023-09-01] MEDS ORDERED: LORazepam 2 MG/ML INJ IM PRN (09:55)
--- NOTE | 2023-09-01 10:07 | P.CN ---
Psychiatric Consult - . Consult date: 09/01/23 Consult:: 09/01/23 10:02 This is a psychiatric assessment on Luz Elena Sanchez who is a 42-year-old female and who is currently hospitalized with altered mental status Patient is a poor historian and appears to have flight of ideas and delusional thinking and gives contradictory history and is unreliable historian Following is an excerpt from the assessment done at the time of admission: Patient is a 42-year-old female she is accompanied by her children. Her son and daughter are at the bedside. Patient apparently has been sleeping and making all of these strange claims talking about the holocaust. Patient is history of heroin use. She has not used heroin for several days she has multiple wounds on her lower extremities there is a what appears to be necrotic wound on her right knee. Since being in the ER patient has been refusing to talk. Past Medical History Past Medical History: No Reported History Additional Past Medical History / Comment(s): Heroin drug use, withdrawal seizures History of Any Multi-Drug Resistant Organisms: None Reported Past Surgical History: Cholecystectomy, Tubal Ligation Additional Past Surgical History / Comment(s): stent in right kidney, left ovary and left fallopian tube removed Past Psychological History: Anxiety Smoking Status: Current every day smoker Past Alcohol Use History: None Reported Past Drug Use History: None Reported Mental status examination: OBJECTIVE: speech was appropriate -The conversation is disorganized and controlled by the patient with the going in different directions -Patient is irritable and projective patient remains in denial about her illness and the need for treatment -Fund of general knowledge is probably average. -pts MOOD IS VOLATILE -pts judgement and insight are impaired patient continues to rationalize and intellectualize Mental Status Exam Behavior: uncooperative, agitated and irritated Speech: fluent, clear, loud volume Perception: cannot be clearly determine if patient is experiencing any auditory or visual hallucinations Cognition: alert, oriented to place, oriented to person, memory impaired , poor concentrating ability, poor attention span Intelligence: average Memory: remote, recent impaired Mood: labile irritable Insight: poor Judgment: poor Thought Processes: disorganized Thought Content: projective rationalizing intellectualizing delusional and projective Diagnostic impression: Psychotic disorder unspecified Rule out bipolar disorder manic type Opiate use disorder last use few days ago Plan: The patient at this time appears to be dealing with infective right knee joint most likely from the substance use The patient is currently in treatment and also remains psychotic I have discussed the case with the nursing staff and we have started her on Haldol 5 mg every 4 to 6 hours as needed for acute agitation as well as lorazepam 2 mg p.o. or IM every 6 hours for acute agitation There also is a commitment certificate on the chart and patient should not be allowed to leave AMA Patient would be a candidate for inpatient psychiatric hospitalization if she continues to remain psychotic and is gravely disabled Will request the psychiatry team to continue follow-up after I leave today Thank you very much for your kind referral and please feel free to contact me for any further questions Efraín Musa MD
--- NOTE | 2023-09-01 11:07 | XR ---
EXAMINATION TYPE: XR chest 1V DATE OF EXAM: 09/01/2023 COMPARISON: NONE HISTORY: Chest pain TECHNIQUE: Single frontal view of the chest is obtained. FINDINGS: Increased perihilar density may reflect developing infiltrates. Correlate clinically and progress ara dies are advised. The cardiac silhouette size is within normal limits. The osseous structures are intact. IMPRESSION: 1. Increased perihilar density may reflect developing infiltrates. Correlate clinically and progress studies are advised.
[2023-09-01] MEDS: POTASSIUM CHLORIDE ER 20 MEQ TAB.ER PO SCH (11:23)
[2023-09-01] MEDS: LORazepam 1 MG TAB PO PRN (11:36)
[2023-09-01] MEDS ORDERED: LORazepam 2 MG/ML INJ IV PRN ×3 (12:15)
[2023-09-01] MEDS: FAMOTIDINE 20 MG TAB PO SCH (12:29)
[2023-09-01] MEDS: HEPARIN SODIUM,PORCINE 5,000 UNIT/ML 1 ML VIAL SQ SCH (15:19)
--- NOTE | 2023-09-01 16:50 | P.CNNES ---
History of Present Illness Consult date: 09/01/23 Reason for Consult: Altered mental status History of Present Illness: The patient is a 42-year-old female who was seen in neurologic consultation on September 01, 2023, in collaboration with Siena Lewis, via teleneurology. History is obtained from review of the chart and is limited. According to the emergency department note patient has reportedly been sleeping a lot and "making strange claims about the holocaust". The patient has a histor y of heroin abuse. She reportedly has not used heroin in several days. The patient herself is unable to provide any history for me. CT scan of the brain was performed in the emergency department. There is no evidence of acute hemorrhage or infarct. Laboratory evaluation reveals a elevated white blood cell count of 13.3 with elevated neutrophils of 9.3. The patient reportedly has a necrotic lesion on her right knee. CRP is elevated at 2.5. Urine drug screen positive for benzos and marijuana. Past Medical History Past Medical History: No Reported History Additional Past Medical History / Comment(s): Heroin drug use, withdrawal seizures History of Any Multi-Drug Resistant Organisms: None Reported Past Surgical History: Cholecystectomy, Tubal Ligation Additional Past Surgical History / Comment(s): stent in right kidney, left ovary and left fallopian tube removed Past Psychological History: Anxiety Smoking Status: Current every day smoker Past Alcohol Use History: None Reported Past Drug Use History: None Reported Medications and Allergies Home Medications Medication Instructions Recorded Confirmed Type No Known Home Medications 09/01/23 09/01/23 History Allergies Allergy/AdvReac Type Severity Reaction Status Date / Time No Known Allergies Allergy Verified 08/31/23 23:38 Physical Examination - Vital Signs Vital Signs: Vital Signs Temp Pulse Pulse Resp BP BP Pulse Ox 09/01/23 07:29 98.9 F 112 H 18 151/76 97 09/01/23 05:01 94 18 118/97 97 09/01/23 03:00 90 18 110/77 95 09/01/23 02:25 92 18 113/79 96 09/01/23 01:24 88 18 129/84 98 08/31/23 23:32 99.3 F 119 H 20 95/71 96 Intake and Output 08/31/23 09/01/23 09/01/23 22:59 06:59 14:59 Other: Voiding Method Toilet Weight 104.326 kg General: Patient is initially laying in the bed. She is easily agitated. HEENT: Head is atraumatic, normocephalic. Fundus not visualized. There is no scleral icterus. Mucous membranes are moist. Neck: Supple without carotid bruits Heart: Regular rate and rhythm Extremities: There numerous bruises involving the bilateral upper and lower extremities. There is a necrotic lesion of the right knee. Neurological examination Mental status: The patient is able to accurately state her name, date of . She incorrectly states her age to be "43". She is not oriented to her current location or month or year. At times the patient becomes agitated. There was an episode of screaming with unintelligible speech. The patient has difficulty following commands. She appears to be internally preoccupied. Cranial nerves: Pupils are equal at 2 mm and reactive. Visual rose are full to confrontation. Extraocular movements are intact. There is no nystagmus. Facial sensation is grossly intact. There is no facial asymmetry. Hearing is grossly intact. Uvula and palate are midline. Shoulder shrug is symmetric. Tongue protrudes midline. There is no bite or tremor of the tongue. Motor: Strength is 5/5 throughout Sensation: Grossly intact to light touch Coordination: There is evidence of tremor of the bilateral upper extremities. Rapid alternating movements are intact, but slightly slowed. [id number] testing is not assessed. There is no pronator drift. Deep tendon reflexes: 2+/4+ in the upper extremities. Patellar reflexes were not assessed secondary to injuries Gait: Not assessed Results - Laboratory Findings CBC and BMP: 09/01/23 01:22 09/01/23 01:22 Abnormal Lab Findings: Abnormal Labs 09/01/23 09/01/23 09/01/23 01:22 01:22 07:45 WBC 13.3 H RBC 5.45 H Neutrophils # 9.3 H Monocytes # 1.1 H Potassium 3.4 L BUN 20 H Glucose 104 H AST 37 H Alkaline Phosphatase 147 H C-Reactive Protein 2.5 H Total Protein 8.5 H Urine Appearance Cloudy H Ur Specific [place] 1.036 H Urine Protein 2+ H Urine Ketones 3+ H Urine Blood Trace H Urine Bilirubin 1+ H Ur Leukocyte Esterase Trace H Ur Squamous Epith Cells 17 H Urine Mucus Few H U Benzodiazepines Scrn Detected H U Marijuana (THC) Screen Detected H Assessment and Plan Assessment: 1. Delirium versus psychosis. Patient has no focal or lateralizing deficits suggestive of cerebral ischemia or encephalitis 2. Reported history of heroin abuse 3. Slightly elevated white blood cell count with elevated CRP-possibly secondary to questionable infection of the right knee Plan: 1. Agree with psychiatry consultation 2. No further neurology intervention is needed at this time. Neurology will sign off. Please call with questions or concerns. Time with Patient: Greater than 30 (60 minutes were spent caring for this patient today including, obtaining history, examining the patient, reviewing imaging, chart documentation, labs and creating this note)
--- NOTE | 2023-09-02 00:47 | P.HPIM ---
History of Present Illness H&P Date: 09/01/23 Past Medical History Past Medical History: No Reported History Additional Past Medical History / Comment(s): Heroin drug use, withdrawal seizures History of Any Multi-Drug Resistant Organisms: None Reported Past Surgical History: Cholecystectomy, Tubal Ligation Additional Past Surgical History / Comment(s): stent in right kidney, left ovary and left fallopian tube removed Past Psychological History: Anxiety Smoking Status: Current every day smoker Past Alcohol Use History: None Reported Past Drug Use History: None Reported Medications and Allergies Home Medications Medication Instructions Recorded Confirmed Type Doxycycline [Vibramycin] 100 mg PO BID 7 Days #14 capsule 04/14/20 04/20/20 Rx Gabapentin [Neurontin] 800 mg PO TID 04/14/20 04/20/20 History Phenazopyridine HCl [Pyridium] 100 mg PO TID PRN 04/20/20 04/20/20 History Phenazopyridine HCl [Pyridium] 100 mg PO TID #30 tab 04/21/20 Rx Sulfamethox-Tmp 800-160Mg [Bactrim 1 each PO Q12HR #28 tab 11/22/20 Rx DS 800-160 mg] Ibuprofen [Motrin] 800 mg PO Q8HR PRN #30 tab 10/22/22 Rx Allergies Allergy/AdvReac Type Severity Reaction Status Date / Time No Known Allergies Allergy Verified 08/31/23 23:38 Physical Exam Vitals: Vital Signs Temp Pulse Pulse Resp BP BP Pulse Ox 09/01/23 07:29 98.9 F 112 H 18 151/76 97 09/01/23 05:01 94 18 118/97 97 09/01/23 03:00 90 18 110/77 95 09/01/23 02:25 92 18 113/79 96 09/01/23 01:24 88 18 129/84 98 08/31/23 23:32 99.3 F 119 H 20 95/71 96 Intake and Output 08/31/23 09/01/23 09/01/23 22:59 06:59 14:59 Other: Voiding Method Toilet Weight 104.326 kg Results CBC & Chem 7: 09/01/23 01:22 09/01/23 01:22 Labs: Abnormal Lab Results - Last 24 Hours (Table) 09/01/23 09/01/23 09/01/23 Range/Units 01:22 01:22 07:45 WBC 13.3 H (3.8-10.6) k/uL RBC 5.45 H (3.80-5.40) m/uL Neutrophils # 9.3 H (1.3-7.7) k/uL Monocytes # 1.1 H (0-1.0) k/uL Potassium 3.4 L (3.5-5.1) mmol/L BUN 20 H (7-17) mg/dL Glucose 104 H (74-99) mg/dL AST 37 H (14-36) U/L Alkaline Phosphatase 147 H (38-126) U/L C-Reactive Protein 2.5 H (<1.0) mg/dL Total Protein 8.5 H (6.3-8.2) g/dL Urine Appearance Cloudy H (Clear) Ur Specific [place] 1.036 H (1.001-1.035) Urine Protein 2+ H (Negative) Urine Ketones 3+ H (Negative) Urine Blood Trace H (Negative) Urine Bilirubin 1+ H (Negative) Ur Leukocyte Esterase Trace H (Negative) Ur Squamous Epith Cells 17 H (0-4) /hpf Urine Mucus Few H (None) /hpf U Benzodiazepines Scrn Detected H (NotDetected) U Marijuana (THC) Screen Detected H (NotDetected)
[2023-09-02] MEDS: DOXYCYCLINE 100 MG CAP PO STA (13:45)
[2023-09-02] MEDS: SODIUM CHLORIDE 0.9% 1,000 ML IV SCH (13:49)
[2023-09-02 16:07] VITALS: BP 128/84; PULSE 77; RESP 16; TEMP 97.6
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
[2023-09-02 17:18] LABS: Basophils % (A) 1 %; Eosinophils # (A) 0.1 k/uL (0-0.7); Eosinophils % (A) 1 %; HCT 44.2 % (34.0-46.0); HGB 14.2 gm/dL (11.4-16.0); Lymphocytes # (A) 2.2 k/uL (1.0-4.8); Lymphocytes % (A) 26 %; MCH 27.5 pg (25.0-35.0); MCV 85.9 fL (80.0-100.0); Mean Platelet Volume 8.9; Monocytes # (A) 0.5 k/uL (0-1.0); Monocytes % (A) 6 %; Neutrophils # (A) 5.3 k/uL (1.3-7.7); Neutrophils % (A) 63 %; Platelet Count 195 k/uL (150-450); RBC 5.15 m/uL (3.80-5.40); RDW 12.4 % (11.5-15.5); WBC 8.3 k/uL (3.8-10.6)
[2023-09-02 17:42] LABS: ALT 26 U/L (4-34); AST 32 U/L (14-36); African American GFR (CKD) >90 (>60 ml/min/1.73 sqM); Albumin 4.4 g/dL (3.5-5.0); Albumin/Globulin Ratio 1.5; Alkaline Phosphatase 118 U/L (38-126); Anion Gap 12 mmol/L; Blood Urea Nitrogen 13 mg/dL (7-17); Calcium 9.4 mg/dL (8.4-10.2); Carbon Dioxide 20 mmol/L (22-30); Chloride 103 mmol/L (98-107); Glucose 102 mg/dL (74-99); Non-African American GFR(CKD) >90 (>60 ml/min/1.73 sqM); Potassium 3.1 mmol/L (3.5-5.1); Sodium 135 mmol/L (137-145); Total Bilirubin 0.9 mg/dL (0.2-1.3); Total Protein 7.4 g/dL (6.3-8.2)
== END 2023-09-02 17:39 | disposition left against medical advice (07) | DRG 773 ==
LOC: EC 23:30 → 4SSUR 09-01 04:59
PROVIDERS: ADMIT Hospitalist; ATTEND Hospitalist
DX: F11.159 Opioid abuse with opioid-induced psychotic disorder, unspecified (principal); F17.200 Nicotine dependence, unspecified, uncomplicated; F41.9 Anxiety disorder, unspecified; Z79.899 Other long term (current) drug therapy; B99.9 Unspecified infectious disease; R79.82 Elevated C-reactive protein (CRP); M00.9 Pyogenic arthritis, unspecified; Z90.79 Acquired absence of other genital organ(s); Z90.721 Acquired absence of ovaries, unilateral; Z60.2 Problems related to living alone; Z28.21 Immunization not carried out because of patient refusal; F32.A Depression, unspecified
CPT/HCPCS: 36415; 70450; 71045; 80053; 80306; 81001; 82075; 83605; 83735; 84145; 84443; 84484; 85025; 86140; 87040; 93005; 96372; 99285

== ENCOUNTER 2023-09-07 09:07 | Inpatient (IN) | payer OTHER ==
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
[2023-09-07] MEDS: LORazepam 1 MG TAB PO STA (09:48)
[2023-09-07] MEDS: SODIUM CHLORIDE 0.9% 1,000 ML IV STA (10:05)
[2023-09-07 10:19] LABS: Basophils % (A) 1 %; Eosinophils # (A) 0.1 k/uL (0-0.7); Eosinophils % (A) 2 %; HCT 42.1 % (34.0-46.0); HGB 13.8 gm/dL (11.4-16.0); Lymphocytes # (A) 2.2 k/uL (1.0-4.8); Lymphocytes % (A) 34 %; MCH 27.9 pg (25.0-35.0); MCHC 32.8 g/dL (31.0-37.0); MCV 85.1 fL (80.0-100.0); Mean Platelet Volume 8.3; Monocytes # (A) 0.4 k/uL (0-1.0); Monocytes % (A) 7 %; Neutrophils # (A) 3.5 k/uL (1.3-7.7); Neutrophils % (A) 54 %; Platelet Count 226 k/uL (150-450); RBC 4.95 m/uL (3.80-5.40); RDW 12.5 % (11.5-15.5); WBC 6.4 k/uL (3.8-10.6)
[2023-09-07 10:40] LABS: Albumin 3.7 g/dL (3.5-5.0); Chloride 107 mmol/L (98-107); Glucose 115 mg/dL (74-99); Potassium 3.2 mmol/L (3.5-5.1); Sodium 138 mmol/L (137-145); Total Protein 6.7 g/dL (6.3-8.2)
[2023-09-07 10:41] LABS: ALT 22 U/L (4-34); AST 29 U/L (14-36); African American GFR (CKD) >90 (>60 ml/min/1.73 sqM); Alkaline Phosphatase 91 U/L (38-126); Anion Gap 6 mmol/L; Blood Urea Nitrogen 12 mg/dL (7-17); Calcium 8.9 mg/dL (8.4-10.2); Carbon Dioxide 25 mmol/L (22-30); Non-African American GFR(CKD) >90 (>60 ml/min/1.73 sqM); Total Bilirubin 0.8 mg/dL (0.2-1.3)
--- NOTE | 2023-09-07 11:22 | XR ---
EXAMINATION TYPE: XR knee complete RT DATE OF EXAM: 09/07/2023 10:25 AM CLINICAL INDICATION:Female, 42 years old with history of infection; [facility] COMPARISON: None. TECHNIQUE: XR knee complete RT; examined in Frontal, lateral and oblique projections. FINDINGS/IMPRESSION: 1. No acute osseous pathology. 2. High density material anterior to the knee slightly lateral on frontal view possibly representing packing material in the setting of nonhealing wound. Correlate with physical exam. No osseous erosion or subcutaneous gas.
[2023-09-07] MEDS ORDERED: NALOXONE 0.4 MG/ML 1 ML VIAL IV PRN (13:07)
[2023-09-07] MEDS: ACETAMINOPHEN TAB 325 MG TAB PO PRN (13:48)
[2023-09-07] MEDS: SODIUM CHLORIDE 0.9% 1,000 ML IV SCH (13:50)
[2023-09-07] MEDS: PIPERACILLIN-TAZOBACTAM 3.375 GM in SODIUM CHLORIDE 0.9% 100 ML IVPB STA (13:50)
[2023-09-07] MEDS ORDERED: VANCOMYCIN IV PER PHARMACY 1 EACH MISC MISCELLANE PRN (14:38)
[2023-09-07] MEDS: CEFEPIME 2 GM in SODIUM CHLORIDE 0.9% 100 ML IVPB SCH (15:41)
[2023-09-07] MEDS: VANCOMYCIN 1,500 MG in SODIUM CHLORIDE 0.9% 500 ML 500 ML IVPB ONE (15:42)
[2023-09-07] MEDS: LORazepam 1 MG TAB PO PRN (18:40)
[2023-09-07] MEDS: ONDANSETRON 4 MG/2 ML VIAL IVP PRN (18:47)
[2023-09-08] MEDS: traZODone HCL 50 MG TAB PO PRN (00:25)
[2023-09-08] MEDS: IBUPROFEN 400 MG TAB PO PRN (02:13)
[2023-09-08] MEDS: VANCOMYCIN 1,500 MG in SODIUM CHLORIDE 0.9% 500 ML 500 ML IVPB SCH ×2 (03:30→13:08)
--- NOTE | 2023-09-08 07:32 | P.CONS ---
History of Present Illness - Reason for Consult Consult date: 09/07/23 Wound infection Requesting physician: Tayler Peña - Chief Complaint Right knee pain and swelling x days - History of Present Illness Patient is a 42-year-old female with a past medical history significant for IV drug use anxiety withdrawal with seizure and current everyday smoker patient presenting to the ER complaining of right knee infection apparently the patient occasionally injected into the right knee area and about a week ago noticed to have increasing pain and swelling to the right knee area with the patient was admitted at the [facility] with the patient did have I&D of the right knee and treated with antibiotic however the patient left AGAINST MEDICAL ADVICE and now presented to this facility concerning for worsening pain swelling redness of the right knee area patient has been describing the pain to be sharp moderate to severe intensity without radiation with associated swelling redness and minimal purulent drainage patient did have some chills at home denies high-grade fever on presentation to the hospital patient was afebrile and no fever have been called subsequently patient was not tachycardic hypotensive or hypoxic patient did have white count 6.4 creatinine 0.53 potassium was 3.2 liver isms are normal blood cultures obtained which are currently pending as well as local culture she was given a dose of Zosyn admitted to the hospital infectious disease was consulted for further management of antibiotic therapy Review of Systems Positive point and negatives has been mentioned in the HPI, complete review of systems was performed and all other systems are negative Past Medical History Past Medical History: No Reported History Additional Past Medical History / Comment(s): Heroin drug use, withdrawal seizures History of Any Multi-Drug Resistant Organisms: None Reported Past Surgical History: Cholecystectomy, Tubal Ligation Additional Past Surgical History / Comment(s): stent in right kidney, left ovary and left fallopian tube removed Past Psychological History: Anxiety Smoking Status: Current every day smoker Past Alcohol Use History: None Reported Past Drug Use History: Heroin Medications and Allergies Home Medications Medication Instructions Recorded Confirmed Type SILVER sulfADIAZINE CREAM 1 applic TOPICAL DAILY 09/07/23 09/07/23 History [Silvadene Cream] Allergies Allergy/AdvReac Type Severity Reaction Status Date / Time No Known Allergies Allergy Verified 09/07/23 11:30 Physical Exam Vitals: Vital Signs Temp Pulse Resp BP Pulse Ox 09/07/23 12:21 78 18 142/85 98 09/07/23 09:20 98.1 F 86 18 150/107 98 Intake and Output 09/06/23 09/07/23 09/07/23 22:59 06:59 14:59 Other: Weight 90.718 kg GENERAL DESCRIPTION: Middle-aged male lying in bed, no distress. No tachypnea or accessory muscle of respiration use. HEENT: Shows Pallor , no scleral icterus. Oral mucous membrane is dry. No pharyngeal erythema or thrush NECK: Trachea central, no thyromegaly. LUNGS: Unlabored breathing. Clear to auscultation anteriorly. No wheeze or crackle. HEART: S1, S2, regular rate and rhythm. No loud murmur ABDOMEN: Soft, no tenderness , guarding or rigidity, no organomegaly EXTREMITIES: Right knee with swelling and redness did have some skin necrosis around the stitches placed and some purulent drainage SKIN: No rash, no masses palpable. NEUROLOGICAL: The patient is awake, alert, oriented x3, mood and affect normal. Results CBC & Chem 7: 09/07/23 09:57 09/07/23 09:57 Labs: Abnormal Lab Results - Last 24 Hours (Table) 09/07/23 Range/Units 09:57 Potassium 3.2 L (3.5-5.1) mmol/L Glucose 115 H (74-99) mg/dL C-Reactive Protein 2.0 H (<1.0) mg/dL Assessment and Plan (1) Cellulitis of right knee Current Visit: Yes Status: Acute Code(s): L03.115 - CELLULITIS OF RIGHT LOWER LIMB SNOMED Code(s): 16768454769911856 (2) Wound infection Current Visit: Yes Status: Acute Code(s): T14.8XXA - OTHER INJURY OF UNSPECIFIED BODY REGION, INITIAL ENCOUNTER; L08.9 - LOCAL INFECTION OF THE SKIN AND SUBCUTANEOUS TISSUE, UNSP SNOMED Code(s): 71471476 (3) Unspecified open wound, right knee, initial encounter Current Visit: No Status: Acute Code(s): S81.001A - UNSPECIFIED OPEN WOUND, RIGHT KNEE, INITIAL ENCOUNTER SNOMED Code(s): 27116451356758249 Plan: 1patient presenting to the hospital with right knee pain swelling redness in this patient who did have a history of IV drug use and admitted to injecting to the area likely in the source for this infection patient was admitted at the [facility] the patient did have I&D unfortunately patient left AGAINST MEDICAL ADVICE and now presenting with worsening infection we will cover for resistant gram-positive as well as gram-negative pathogen. 2blood and local cultures obtained which are currently pending and results will follow. 3patient benefit from Ortho evaluation for further I&D and removal of some of the necrotic skin. 4I will start the patient on vancomycin pharmacy to dose and cefepime pending culture report and clinical response. We will follow on clinical condition and cultures to further adjust medication if needed Thank you for this consultation we will follow the patient along with you Dictation was produced using [employer] dictation software. please excuse any grammatical, word or spelling errors.
[2023-09-08 07:53] LABS: Basophils % (A) 1 %; Eosinophils # (A) 0.1 k/uL (0-0.7); Eosinophils % (A) 1 %; HCT 37.8 % (34.0-46.0); HGB 12.6 gm/dL (11.4-16.0); Lymphocytes # (A) 1.9 k/uL (1.0-4.8); Lymphocytes % (A) 38 %; MCH 27.8 pg (25.0-35.0); MCHC 33.3 g/dL (31.0-37.0); MCV 83.5 fL (80.0-100.0); Mean Platelet Volume 8.6; Monocytes # (A) 0.3 k/uL (0-1.0); Monocytes % (A) 6 %; Neutrophils # (A) 2.6 k/uL (1.3-7.7); Neutrophils % (A) 51 %; Platelet Count 181 k/uL (150-450); RBC 4.52 m/uL (3.80-5.40); RDW 12.4 % (11.5-15.5); WBC 5.1 k/uL (3.8-10.6)
[2023-09-08 08:13] LABS: African American GFR (CKD) >90 (>60 ml/min/1.73 sqM); Anion Gap 6 mmol/L; Blood Urea Nitrogen 11 mg/dL (7-17); Calcium 8.4 mg/dL (8.4-10.2); Carbon Dioxide 23 mmol/L (22-30); Chloride 109 mmol/L (98-107); Glucose 108 mg/dL (74-99); Non-African American GFR(CKD) >90 (>60 ml/min/1.73 sqM); Sodium 138 mmol/L (137-145)
[2023-09-08 08:39] LABS: Potassium 3.4 mmol/L (3.5-5.1)
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
[2023-09-08 17:05] LABS: Appearance,Urine Cloudy (Clear); Bilirubin,Urine 1+ (Negative); Blood,Urine Large (Negative); Color,Urine Yellow; Glucose,Urine (UA) Negative (Negative); Ketones,Urine 2+ (Negative); Leukocyte Esterase,Urine Moderate (Negative); Mucus,Urine Occasional /hpf; Nitrite,Urine Negative (Negative); Protein,Urine 1+ (Negative); RBC,Urine 4 /hpf (0-5); Specific Gravity,Urine 1.035 (1.001-1.035); Squamous Epithelial Cell,Urine 11 /hpf (0-4); WBC,Urine 8 /hpf (0-5)
[2023-09-08] MEDS ORDERED: METOCLOPRAMIDE 5 MG/ML 2 ML VIAL IVP PRN (18:42)
[2023-09-08] MEDS: VANCOMYCIN TROUGH DUE 1 EACH MISC MISCELLANE ONE (21:32)
--- NOTE | 2023-09-08 21:40 | P.PN ---
Subjective Progress Note Date: 09/08/23 Principal diagnosis: Reason for follow-up is right knee infection Patient is a 42-year-old female with a past medical history significant for IV drug use anxiety withdrawal with seizure and current everyday smoker patient presenting to the ER complaining of right knee infection apparently the patient occasionally injected into the right knee area and did have debridement at [facility] from June the patient has signed out AGAINST MEDICAL ADVICE presented to this facility with worsening pain. On today's evaluation that is 09/08/2023,the patient denies any fever or any chills, patient is breathing comfortably on room air, the patient denies chest pain shortness of breath and no significant cough, patient denies abdominal pain, no nausea vomiting or diarrhea, pain to the right is slightly decreased in intensity. Patient white count is 5.1, creatinine 0.49 blood and local cultures currently pending. Objective - Vital Signs Vital signs: Vital Signs Temp 98.3 F 09/08/23 07:20 Pulse 65 09/08/23 07:20 Resp 15 09/08/23 07:20 BP 116/76 09/08/23 07:20 Pulse Ox 98 09/08/23 07:20 FiO2 Intake & Output 09/07/23 09/08/23 09/08/23 18:59 06:59 18:59 Weight 90.718 kg Other: # Voids 1 - Exam GENERAL DESCRIPTION: Middle-age female lying in bed in no distress RESPIRATORY SYSTEM: Unlabored breathing , decreased breath sounds at bases HEART: S1 S2 regular rate and rhythm , ABDOMEN: Soft , no tenderness EXTREMITIES: Right knee swelling slightly decreased did have a wound with some skin necrosis minimal drainage - Labs CBC & Chem 7: 09/08/23 07:28 09/08/23 07:28 Labs: Abnormal Lab Results - Last 24 Hours (Table) 09/07/23 09/08/23 Range/Units 09:57 07:28 Potassium 3.2 L 3.4 L (3.5-5.1) mmol/L Chloride 109 H (98-107) mmol/L Creatinine 0.49 L (0.52-1.04) mg/dL Glucose 115 H 108 H (74-99) mg/dL C-Reactive Protein 2.0 H (<1.0) mg/dL Microbiology - Last 24 Hours (Table) 09/07/23 09:57 Gram Stain - Preliminary Knee - Right Wound Culture - Preliminary Assessment and Plan (1) Cellulitis of right knee Current Visit: Yes Status: Acute Code(s): L03.115 - CELLULITIS OF RIGHT LOWER LIMB SNOMED Code(s): 60721254536428164 (2) Wound infection Current Visit: Yes Status: Acute Code(s): T14.8XXA - OTHER INJURY OF UNSPECIFIED BODY REGION, INITIAL ENCOUNTER; L08.9 - LOCAL INFECTION OF THE SKIN AND SUBCUTANEOUS TISSUE, UNSP SNOMED Code(s): 33182270 (3) Unspecified open wound, right knee, initial encounter Current Visit: No Status: Acute Code(s): S81.001A - UNSPECIFIED OPEN WOUND, RIGHT KNEE, INITIAL ENCOUNTER SNOMED Code(s): 39897795390047468 Plan: 1patient presenting to the hospital with right knee pain swelling redness in this patient who did have a history of IV drug use and admitted to injecting to the area likely in the source for this infection patient was admitted at the [facility] the patient did have I&D unfortunately patient left AGAINST MEDICAL ADVICE and now presenting with worsening infection we will cover for resistant gram-positive as well as gram-negative pathogen. 2blood and local cultures obtained which are currently pending and results will follow. 3Ortho has been consulted await I&D and removal of some of the necrotic skin as well as deep culture. 4patient to continue with vancomycin pharmacy to dose and cefepime pending culture report and clinical response. Dictation was produced using [employer] dictation software. please excuse any grammatical, word or spelling errors. Time with Patient: Less than 30
[2023-09-09 07:10] VITALS: RESP 16
[2023-09-09 07:36] LABS: African American GFR (CKD) >90 (>60 ml/min/1.73 sqM); Anion Gap 4 mmol/L; Blood Urea Nitrogen 8 mg/dL (7-17); Calcium 8.4 mg/dL (8.4-10.2); Carbon Dioxide 22 mmol/L (22-30); Chloride 112 mmol/L (98-107); Glucose 100 mg/dL (74-99); Non-African American GFR(CKD) >90 (>60 ml/min/1.73 sqM); Potassium 3.5 mmol/L (3.5-5.1); Sodium 138 mmol/L (137-145)
[2023-09-09 08:23] LABS: Basophils % (A) 1 %; Eosinophils # (A) 0.1 k/uL (0-0.7); Eosinophils % (A) 2 %; HCT 38.8 % (34.0-46.0); HGB 13.1 gm/dL (11.4-16.0); Lymphocytes # (A) 1.9 k/uL (1.0-4.8); Lymphocytes % (A) 36 %; MCH 28.3 pg (25.0-35.0); MCHC 33.9 g/dL (31.0-37.0); MCV 83.5 fL (80.0-100.0); Mean Platelet Volume 9.6; Monocytes # (A) 0.4 k/uL (0-1.0); Monocytes % (A) 8 %; Neutrophils # (A) 2.8 k/uL (1.3-7.7); Neutrophils % (A) 51 %; Platelet Count 223 k/uL (150-450); RBC 4.65 m/uL (3.80-5.40); RDW 12.4 % (11.5-15.5); WBC 5.4 k/uL (3.8-10.6)
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
--- NOTE | 2023-09-09 22:53 | P.PN ---
Subjective Progress Note Date: 09/09/23 Principal diagnosis: Reason for follow-up is right knee infection Patient is a 42-year-old female with a past medical history significant for IV drug use anxiety withdrawal with seizure and current everyday smoker patient presenting to the ER complaining of right knee infection apparently the patient occasionally injected into the right knee area and did have debridement at [facility] from June the patient has signed out AGAINST MEDICAL ADVICE presented to this facility with worsening pain. On today's evaluation that is 09/09/2023,the patient remains to be afebrile, patient is on room air not requiring supplemental oxygen and denies any shortness of breath no chest pain or cough.Patient denies having any nausea or vomiting, no abdominal pain and no diarrhea has been reported patient pain and swelling to the right knee has slightly decreased and the patient has been insisting on going home. Patient white count is 5.4 creatinine 0.48 culture done this admission has been negative cultures are medically close positive for MSSA Objective - Vital Signs Vital signs: Vital Signs Temp 98.2 F 09/09/23 07:09 Pulse 74 09/09/23 07:09 Resp 16 09/09/23 07:09 BP 133/80 09/09/23 07:09 Pulse Ox 95 09/09/23 07:09 FiO2 Intake & Output 09/08/23 09/09/23 09/09/23 18:59 06:59 18:59 Other: # Voids 2 2 - Exam GENERAL DESCRIPTION: Middle-age female lying in bed in no distress RESPIRATORY SYSTEM: Unlabored breathing , decreased breath sounds at bases HEART: S1 S2 regular rate and rhythm , ABDOMEN: Soft , no tenderness EXTREMITIES: Right knee swelling slightly decreased did have a wound with some s kin necrosis minimal drainage - Labs CBC & Chem 7: 09/09/23 07:28 09/09/23 06:20 Labs: Abnormal Lab Results - Last 24 Hours (Table) 09/08/23 09/09/23 Range/Units 16:43 06:20 Chloride 112 H (98-107) mmol/L Creatinine 0.48 L (0.52-1.04) mg/dL Glucose 100 H (74-99) mg/dL Urine Appearance Cloudy H (Clear) Urine Protein 1+ H (Negative) Urine Ketones 2+ H (Negative) Urine Blood Large H (Negative) Urine Bilirubin 1+ H (Negative) Ur Leukocyte Esterase Moderate H (Negative) Urine WBC 8 H (0-5) /hpf Ur Squamous Epith Cells 11 H (0-4) /hpf Urine Mucus Occasional H (None) /hpf Microbiology - Last 24 Hours (Table) 09/07/23 09:57 Gram Stain - Final Knee - Right Wound Culture - Final 09/07/23 09:45 Blood Culture - Preliminary Blood 09/07/23 09:57 Blood Culture - Preliminary Blood Assessment and Plan (1) Cellulitis of right knee Current Visit: Yes Status: Acute Code(s): L03.115 - CELLULITIS OF RIGHT LOWER LIMB SNOMED Code(s): 31290028970277210 (2) Wound infection Current Visit: Yes Status: Acute Code(s): T14.8XXA - OTHER INJURY OF UNSPECIFIED BODY REGION, INITIAL ENCOUNTER; L08.9 - LOCAL INFECTION OF THE SKIN AND SUBCUTANEOUS TISSUE, UNSP SNOMED Code(s): 77926087 (3) Unspecified open wound, right knee, initial encounter Current Visit: No Status: Acute Code(s): S81.001A - UNSPECIFIED OPEN WOUND, RIGHT KNEE, INITIAL ENCOUNTER SNOMED Code(s): 86546346421417696 Plan: 1patient presenting to the hospital with right knee pain swelling redness in this patient who did have a history of IV drug use and admitted to injecting to the area likely in the source for this infection patient was admitted at the [facility] the patient did have I&D unfortunately patient left AGAINST MEDICAL ADVICE and now presenting with worsening infection we will cover for resistant gram-positive as well as gram-negative pathogen. 2blood and local cultures obtained which are currently pending and results will follow. 3patient will benefit from debridement of necrotic skin as well as deep culture. 4we will discontinue vancomycin pharmacy to dose and cefepime and start the patient on cefazolin patient has been brought to the hospital for IV antibiotic therapy not ideal for outpatient IV antibiotics, keeping in mind active IV drug use Dictation was produced using [employer] dictation software. please excuse any grammatical, word or spelling errors. Time with Patient: Less than 30
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
[2023-09-10 07:31] VITALS: BP 123/78; PULSE 80; TEMP 97.8
[2023-09-10] MEDS ORDERED: VANCOMYCIN TROUGH DUE 1 EACH MISC MISCELLANE ONE (11:00)
[2023-09-10 11:24] LABS: African American GFR (CKD) >90 (>60 ml/min/1.73 sqM); Non-African American GFR(CKD) >90 (>60 ml/min/1.73 sqM)
--- NOTE | 2023-09-10 14:39 | P.PN ---
Subjective Progress Note Date: 09/10/23 Principal diagnosis: Reason for follow-up is right knee infection Patient is a 42-year-old female with a past medical history significant for IV drug use anxiety withdrawal with seizure and current everyday smoker patient presenting to the ER complaining of right knee infection apparently the patient occasionally injected into the right knee area and did have debridement at [facility] from June the patient has signed out AGAINST MEDICAL ADVICE presented to this facility with worsening pain. On today's evaluation that is 09/09/2023,the patient remains to be afebrile, patient is on room air not requiring supplemental oxygen and denies any shortness of breath no chest pain or cough.Patient denies having any nausea or vomiting, no abdominal pain and no diarrhea patient pain to the right knee has decreased intensity patient has been insisting on going home. Patient white count is 5.4, creatinine 0.45 ordered on this admission has been negative blood culture negative Objective - Vital Signs Vital signs: Vital Signs Temp 97.8 F 09/10/23 07:30 Pulse 80 09/10/23 07:30 Resp 16 09/10/23 07:30 BP 123/78 09/10/23 07:30 Pulse Ox 96 09/10/23 07:30 FiO2 Intake & Output 09/09/23 09/10/23 09/10/23 18:59 06:59 18:59 Intake Total 118 118 Balance 118 118 Intake: Oral 118 118 Other: # Voids 2 3 # Bowel Movements 1 - Exam GENERAL DESCRIPTION: Middle-age female lying in bed in no distress RESPIRATORY SYSTEM: Unlabored breathing , decreased breath sounds at bases HEART: S1 S2 regular rate and rhythm , ABDOMEN: Soft , no tenderness EXTREMITIES: Right knee swelling slightly decreased did have a wound with some skin necrosis minimal drainage - Labs CBC & Chem 7: 09/09/23 07:28 09/10/23 10:36 Labs: Abnormal Lab Results - Last 24 Hours (Table) 09/10/23 Range/Units 10:36 Creatinine 0.45 L (0.52-1.04) mg/dL Microbiology - Last 24 Hours (Table) 09/07/23 09:45 Blood Culture - Preliminary Blood 09/07/23 09:57 Blood Culture - Preliminary Blood 09/07/23 09:57 Gram Stain - Final Knee - Right Wound Culture - Final Assessment and Plan (1) Cellulitis of right knee Status: Acute Code(s): L03.115 - CELLULITIS OF RIGHT LOWER LIMB SNOMED Code(s): 80569968270415233 (2) Wound infection Status: Acute Code(s): T14.8XXA - OTHER INJURY OF UNSPECIFIED BODY REGION, INITIAL ENCOUNTER; L08.9 - LOCAL INFECTION OF THE SKIN AND SUBCUTANEOUS TISSUE, UNSP SNOMED Code(s): 24946150 (3) Unspecified open wound, right knee, initial encounter Status: Acute Code(s): S81.001A - UNSPECIFIED OPEN WOUND, RIGHT KNEE, INITIAL ENCOUNTER SNOMED Code(s): 01047281097455627 Plan: 1patient presenting to the hospital with right knee pain swelling redness in this patient who did have a history of IV drug use and admitted to injecting to the area likely in the source for this infection patient was admitted at the [facility] the patient did have I&D unfortunately patient left AGAINST MEDICAL ADVICE and now presenting with worsening infection culture done at [facility] came back positive with MSSA 2blood and local cultures obtained this admission has been negative so far 3patient will benefit from debridement of necrotic skin as well as deep culture unfortunately orthopedics evaluate the patient and want the patient to go back to her own surgeon patient has been insisting on going home we will consider a 2-week course of oral Keflex on discharge with instruction if any worsening swelling redness to come back to the hospital right away and she is scheduled to follow-up with the wound care this this was discussed with the RESP THER for admitting team working on discharge Dictation was produced using [employer] dictation software. please excuse any grammatical, word or spelling errors. Time with Patient: Less than 30
--- NOTE | 2023-09-12 06:59 | P.DS ---
Providers Date of admission: 09/07/23 13:12 Expected date of discharge: 09/10/23 Attending physician: Leander Thapa Consults: 09/07/23 13:07 Consult Physician Urgent Consulting Provider: Syeda Nicholson Consult Reason/Comments: wound infection Do you want consulting provider notified?: Yes 09/08/23 12:11 Consult Physician Routine Consulting Provider: Roman Patterson Consult Reason/Comments: Infected R knee wound Do you want consulting provider notified?: Yes Primary care physician: Stated None Hospital Course: Final diagnosis -Cellulitis right knee with cultures from [facility] showing Staph aureus status post I&D a few days ago, patient left AMA from [facility] -Open wound right knee; likely infected -IV drug abuse; patient reports occasionally injecting the knee with the drugs -Electrolyte imbalance; hypokalemia, improved -Noncompliance with medications and follow-up -GI prophylaxis -DVT prophylaxis; SCDs -full code Discharge disposition Patient is being discharged in a stable condition with guarded prognosis to home. Patient will follow-up with Dr. Arturo Thapa in the outpatient setting upon discharge. Patient is to continue with oral antibiotics in the form of Keflex with close outpatient follow-up with the wound care center as scheduled on this week. Total time taken is greater than 35 minutes. Hospital course This is a 42-year-old female who was recently admitted with cellulitis and left AGAINST MEDICAL ADVICE from [facility] hospital. Patient reported here with worsening redness and pain status post I&D at [place] urine culture showing Staph aureus. Patient has failed outpatient treatment as patient returned back to the ER with worsening pain. Patient with history of IV drug abuse admits to continuing to use although reports wants to get better. Patient did make reports to nursing staff that she wants to go home to "use dope". Patient will continue on Keflex 4 times daily and has an appointment at the wound care center. Patient was evaluated by orthopedics here with no plans of further surgical intervention recommending outpatient follow-up with primary surgeon at [facility] that performed the incision and drainage. Please refer to other consultation notes for further HPI. CUrrently no reports of chest pain, shortness of breath, or palpitations. Patient is afebrile. No reports of nausea or vomiting and patient is tolerating diet. Patient will be discharged home today. Guarded prognosis and high risk for readmissions given patient's continued drug use, noncompliance, and comorbidities Physical exam: Gen: This is a 42-year-old female who is awake, alert oriented x 3, well- developed, well-nourished, obese HEENT: Head is atraumatic, normocephalic. Pupils equal, round. Sclerae is anicte deo. NECK: Supple. No JVD. No lymphadenopathy. No thyromegaly. LUNGS: Clear to auscultation. No wheezes or rhonchi. No intercostal retractions. HEART: Regular rate and rhythm. No murmur. ABDOMEN: Soft. Bowel sounds are present. No masses. No tenderness. EXTREMITIES: No pedal edema. No calf tenderness. Right knee with some redness noted in opening of the middle of the surgical site with some suture sticking out and pulled NEUROLOGICAL: Patient is awake, alert and oriented x3. Cranial nerves 2 through 12 are grossly intact. Please refer to medication reconciliation sheet for a list of medications. The impression and plan of care has been dictated by Dian Vang, Nurse Practitioner as directed. Dr. Irineo MD I have performed a history and examination and MDM of this patient, discussed the same with the dictator, and agree with the dictator's assessment and plan as written ,documented as a scribe. Based on total visit time, I have performed more than 50% of the visit. Patient Condition at Discharge: Stable Plan - Discharge Summary Discharge Rx Participant: No New Discharge Prescriptions: New Cephalexin [Keflex] 500 mg PO Q6HR 14 Days #56 cap Ibuprofen [Motrin] 400 mg PO Q6HR PRN tab PRN Reason: Mild Pain Or Fever > 100.5 Acetaminophen Tab [Tylenol] 650 mg PO Q6HR PRN tab PRN Reason: Mild Pain Or Fever > 100.5 Continue SILVER sulfADIAZINE CREAM [Silvadene Cream] 1 applic TOPICAL DAILY Discharge Medication List SILVER sulfADIAZINE CREAM [Silvadene Cream] 1 applic TOPICAL DAILY 09/07/23 [History] Acetaminophen Tab [Tylenol] 650 mg PO Q6HR PRN tab 09/10/23 [Rx] Cephalexin [Keflex] 500 mg PO Q6HR 14 Days #56 cap 09/10/23 [Rx] Ibuprofen [Motrin] 400 mg PO Q6HR PRN tab 09/10/23 [Rx] Follow up Appointment(s)/Referral(s): Xiao Roach MD [STAFF PHYSICIAN] - 1 Week Patient Instructions/Handouts: Wound Infection (DC), Acute Wound Care (DC) Activity/Diet/Wound Care/Special Instructions: Activity limited until follow-up Follow-up with primary care provider on discharge to establish Follow-up with the wound care center as scheduled on at 2:00 Continue with oral antibiotics as prescribed by infectious disease Follow-up orthopedics office in the outpatient setting as previously instructed Discharge Disposition: HOME SELF-CARE
== END 2023-09-10 13:43 | disposition home or self-care (01) | DRG 383 ==
LOC: EC 09:07 → 5NMEDONC 13:12 → 6NMEDSUR 22:34
PROVIDERS: ADMIT Hospitalist; ATTEND Hospitalist
DX: L03.115 Cellulitis of right lower limb (principal); R53.83 Other fatigue; E87.6 Hypokalemia; F17.200 Nicotine dependence, unspecified, uncomplicated; F11.10 Opioid abuse, uncomplicated; F41.9 Anxiety disorder, unspecified; Z91.148 Patient's other noncompliance with medication regimen for other reason
CPT/HCPCS: 36415; 80048; 80053; 80202; 81001; 82565; 83605; 85025; 86140; 87040; 87070; 87205; 96361; 96365; 96366; 96367; 96368; 96375; 99285

== ENCOUNTER 2023-12-30 03:35 | Emergency (ER) | payer OTHER ==
[2023-12-30] MEDS: ONDANSETRON 4 MG/2 ML VIAL IVP STA (04:10)
[2023-12-30] MEDS: SODIUM CHLORIDE 0.9% 1,000 ML IV STA (04:11)
[2023-12-30] MEDS: METOCLOPRAMIDE 5 MG/ML 2 ML VIAL IVP STA (04:11)
[2023-12-30 04:25] LABS: Basophils % (A) 0 %; Eosinophils # (A) 0.1 k/uL (0-0.7); Eosinophils % (A) 1 %; HCT 50.3 % (34.0-46.0); HGB 16.7 gm/dL (11.4-16.0); Lymphocytes # (A) 2.2 k/uL (1.0-4.8); Lymphocytes % (A) 18 %; MCH 27.8 pg (25.0-35.0); MCHC 33.3 g/dL (31.0-37.0); MCV 83.5 fL (80.0-100.0); Mean Platelet Volume 10.1; Monocytes # (A) 0.6 k/uL (0-1.0); Monocytes % (A) 5 %; Neutrophils # (A) 8.7 k/uL (1.3-7.7); Neutrophils % (A) 74 %; Platelet Count 170 k/uL (150-450); RBC 6.02 m/uL (3.80-5.40); RDW 12.9 % (11.5-15.5); WBC 11.7 k/uL (3.8-10.6)
[2023-12-30 04:27] LABS: Appearance,Urine Cloudy (Clear); Bacteria,Urine Rare /hpf; Bilirubin,Urine 1+ (Negative); Blood,Urine Negative (Negative); Color,Urine Yellow; Glucose,Urine (UA) Negative (Negative); Ketones,Urine 2+ (Negative); Leukocyte Esterase,Urine Negative (Negative); Mucus,Urine Many /hpf; Nitrite,Urine Negative (Negative); Protein,Urine 1+ (Negative); RBC,Urine 2 /hpf (0-5); Specific Gravity,Urine 1.031 (1.001-1.035); Squamous Epithelial Cell,Urine 20 /hpf (0-4); WBC,Urine 5 /hpf (0-5)
--- NOTE | 2023-12-30 04:37 | ED ---
Nausea/Vomiting/Diarrhea HPI - General Chief complaint: Nausea/Vomiting/Diarrhea Stated complaint: NVD Time Seen by Provider: 12/30/23 03:52 Source: patient Mode of arrival: EMS Limitations: no limitations - History of Present Illness Initial comments: Patient is a 43-year-old woman presenting to have evaluation for worsening of nausea and vomiting after starting Suboxone. Patient states she is at [facility] to stop using alcohol and opiates. She states that she had been started on Suboxone. After that she has been experiencing continuous nausea and vomiting. She states that they did try a number of medications at the facility and then when she was continue to have vomiting she was transferred here. Patient denies fever or chills. No change in bowel movements. No change in urination. She does have some cramping abdominal pain. MD complaint: nausea, vomiting -: hour(s) Description of Vomiting: food contents Associated Abdominal Pain: Yes Location: diffuse Severity: moderate Quality: cramping Consistency: intermittent Improves with: none Worsens with: none Associated Symptoms: denies other symptoms - Related Data Home Medications Medication Instructions Recorded Confirmed SILVER sulfADIAZINE CREAM 1 applic TOPICAL DAILY 09/07/23 09/07/23 [Silvadene Cream] Previous Rx's Medication Instructions Recorded Acetaminophen Tab [Tylenol] 650 mg PO Q6HR PRN tab 09/10/23 Cephalexin [Keflex] 500 mg PO Q6HR 14 Days #56 cap 09/10/23 Ibuprofen [Motrin] 400 mg PO Q6HR PRN tab 09/10/23 Metoclopramide [Reglan] 10 mg PO ACHS #16 tab 12/30/23 Allergies Allergy/AdvReac Type Severity Reaction Status Date / Time No Known Allergies Allergy Verified 12/30/23 03:41 Review of Systems ROS Statement: Those systems with pertinent positive or pertinent negative responses have been documented in the HPI. ROS Other: All systems not noted in ROS Statement are negative. Constitutional: Denies: fever, chills, weakness Respiratory: Denies: cough, dyspnea Cardiovascular: Denies: chest pain, palpitations, edema Gastrointestinal: Reports: abdominal pain, nausea, vomiting. Denies: diarrhea, constipation, melena, hematochezia Genitourinary: Denies: dysuria, frequency, hematuria Musculoskeletal: Denies: back pain Skin: Denies: rash Neurological: Denies: headache, weakness, numbness Past Medical History Past Medical History: No Reported History Additional Past Medical History / Comment(s): Heroin drug use, withdrawal seizures History of Any Multi-Drug Resistant Organisms: None Reported Past Surgical History: Cholecystectomy, Tubal Ligation Additional Past Surgical History / Comment(s): stent in right kidney, left ovary and left fallopian tube removed Past Psychological History: Anxiety Past Drug Use History: Heroin General Exam Limitations: no limitations General appearance: alert, in no apparent distress Head exam: Present: atraumatic, normocephalic Eye exam: Present: normal appearance. Absent: scleral icterus, conjunctival injection Neck exam: Present: normal inspection Respiratory exam: Present: normal lung sounds bilaterally. Absent: respiratory distress, wheezes, rales, rhonchi, stridor, accessory muscle use Cardiovascular Exam: Present: regular rate, normal rhythm, normal heart sounds. Absent: systolic murmur, diastolic murmur, rubs, gallop GI/Abdominal exam: Present: soft. Absent: distended, tenderness, guarding, rebound, rigid, mass, pulsatile mass, hernia Extremities exam: Present: normal inspection, normal capillary refill. Absent: pedal edema, calf tenderness Back exam: Present: normal inspection. Absent: CVA tenderness (R), CVA tenderness (L) Neurological exam: Present: alert Skin exam: Present: warm, dry, intact, normal color. Absent: rash Course Vital Signs 12/30/23 12/30/23 12/30/23 03:37 05:53 07:48 Temperature 97.2 F L 97.8 F Pulse Rate 77 84 Respiratory 18 67 H 16 Rate Blood Pressure 116/81 102/75 131/88 O2 Sat by Pulse 96 100 99 Oximetry Medical Decision Making - Medical Decision Making Was pt. sent in by a medical professional or institution (, PA, SECONDARY [employer]CTOR [employer], urgent care, hospital, or penitentiary...) When possible be specific @ -[Yes the patient is sent from [facility] to have evaluation for her symptoms, nausea and vomiting Did you speak to anyone other than the patient for history (EMS, parent, family, police, friend...)? What history was obtained from this source @ -[No] Did you review nursing and triage notes (agree or disagree)? Why? @ -[I reviewed and agree with nursing and triage notes] Were old charts reviewed (outside hosp., previous admission, EMS record, old EKG, old radiological studies, urgent care reports/EKG's, penitentiary records)? Report findings @ -[I reviewed the transfer charts Differential Diagnosis (chest pain, altered mental status, abdominal pain women, abdominal pain men, vaginal bleeding, weakness, fever, dyspnea, syncope, headache, dizziness, GI bleed, back pain, seizure, CVA, palpatations, mental hea lth, musculoskeletal)? @ -[Differential vomiting Appendicitis, Cholecystitis, diverticulosis, ischemic bowel, pancreatitis, hepatitis, UTI, gastroenteritis, incarcerated hernia, bowel obstruction, c onstipation, inflammatory bowel, peptic ulcer disease, perforated viscus, ovarian torsion, PID, kidney stone, this is not meant to be an all-inclusive list EKG interpreted by me (3pts min.). @ -[As above] X-rays interpreted by me (1pt min.). @ -[None done] CT interpreted by me (1pt min.). @ -[None done] U/S interpreted by me (1pt. min.). @ -[None done] What testing was considered but not performed or refused? (CT, X-rays, U/S, labs)? Why? @ -[None] What meds were considered but not given or refused? Why? @ -[None] Did you discuss the management of the patient with other professionals (professionals i.e. , PA, [employer], lab, RT, psych nurse, social psychologist, drinking water technician, teacher, real estate officer, supervisor case loading)? Give summary @ -[No] Was smoking cessation discussed for >3mins.? @ -[No] Was critical care preformed (if so, how long)? @ -[No] Were there social determinants of health that impacted care today? How? (Homelessness, low income, unemployed, alcoholism, drug addiction, transportat ion, low edu. Level, literacy, decrease access to med. care, senior living, rehab)? @ -[No] Was there de-escalation of care discussed even if they declined (Discuss DNR or withdrawal of care, Hospice)? DNR status @ -[No] What co-morbidities impacted this encounter? (DM, HTN, Smoking, COPD, CAD, Cancer, CVA, ARF, Chemo, Hep., AIDS, mental health diagnosis, sleep apnea, morbid obesity)? @ -[None] Was patient admitted / discharged? Hospital course, mention meds given and route, prescriptions, significant lab abnormalities, going to OR and other pertinent info. @ -[The patient did have relief of symptoms following medication. On reevaluation she is able to tolerate oral intake and is feeling better. At this point stable for discharge back to [facility]. Discussed return parameters. Undiagnosed new problem with uncertain prognosis? @ -[No] Drug Therapy requiring intensive monitoring for toxicity (Heparin, Nitro, Insulin, Cardizem)? @ -[No] Were any procedures done? @ -[No] Diagnosis/symptom? @ -[Acute nausea and vomiting Opioid withdrawal Acute, or Chronic, or Acute on Chronic? @ -[Acute Uncomplicated (without systemic symptoms) or Complicated (systemic symptoms)? @ -[Uncomplicated Side effects of treatment? @ -[No] Exacerbation, Progression, or Severe Exacerbation? @ -[No] Poses a threat to life or bodily function? How? (Chest pain, USA, NM, pneumonia, PE, COPD, DKA, ARF, appy, cholecystitis, CVA, Diverticulitis, Homicidal, Suicidal, threat to staff... and all critical care pts) @ -[No] - Lab Data Result diagrams: 12/30/23 03:52 12/30/23 03:55 Lab Results 12/30/23 12/30/23 12/30/23 Range/Units 03:52 03:55 03:55 WBC 11.7 H (3.8-10.6) k/uL RBC 6.02 H (3.80-5.40) m/uL Hgb 16.7 H (11.4-16.0) gm/dL Hct 50.3 H (34.0-46.0) % MCV 83.5 (80.0-100.0) fL MCH 27.8 (25.0-35.0) pg MCHC 33.3 (31.0-37.0) g/dL RDW 12.9 (11.5-15.5) % Plt Count 170 (150-450) k/uL MPV 10.1 Neutrophils % 74 % Lymphocytes % 18 % Monocytes % 5 % Eosinophils % 1 % Basophils % 0 % Neutrophils # 8.7 H (1.3-7.7) k/uL Lymphocytes # 2.2 (1.0-4.8) k/uL Monocytes # 0.6 (0-1.0) k/uL Eosinophils # 0.1 (0-0.7) k/uL Basophils # 0.0 (0-0.2) k/uL Sodium 135 L (137-145) mmol/L Potassium 4.5 (3.5-5.1) mmol/L Chloride 100 (98-107) mmol/L Carbon Dioxide 25 (22-30) mmol/L Anion Gap 10 mmol/L BUN 19 H (7-17) mg/dL Creatinine 0.81 (0.52-1.04) mg/dL Est GFR (CKD-EPI)AfAm >90 (>60 ml/min/1.73 sqM) Est GFR (CKD-EPI)NonAf >90 (>60 ml/min/1.73 sqM) Glucose 114 H (74-99) mg/dL Calcium 9.8 (8.4-10.2) mg/dL Total Bilirubin 1.1 (0.2-1.3) mg/dL AST 25 (14-36) U/L ALT 18 (4-34) U/L Alkaline Phosphatase 119 (38-126) U/L Total Protein 8.6 H (6.3-8.2) g/dL Albumin 5.1 H (3.5-5.0) g/dL Amylase 70 (30-110) U/L Lipase 179 (23-300) U/L Urine Color Yellow Urine Appearance Cloudy H (Clear) Urine pH 6.0 (5.0-8.0) Ur Specific [place] 1.031 (1.001-1.035) Urine Protein 1+ H (Negative) Urine Glucose (UA) Negative (Negative) Urine Ketones 2+ H (Negative) Urine Blood Negative (Negative) Urine Nitrite Negative (Negative) Urine Bilirubin 1+ H (Negative) Urine Urobilinogen 3.0 (<2.0) mg/dL Ur Leukocyte Esterase Negative (Negative) Urine RBC 2 (0-5) /hpf Urine WBC 5 (0-5) /hpf Ur Squamous Epith Cells 20 H (0-4) /hpf Urine Bacteria Rare H (None) /hpf Urine Mucus Many H (None) /hpf Disposition Clinical Impression: Vomiting, Opioid withdrawal Disposition: OTHER INSTITUTION NOT DEFINED Condition: Good Instructions (If sedation given, give patient instructions): Acute Nausea and Vomiting (ED) Prescriptions: Metoclopramide [Reglan] 10 mg PO ACHS #16 tab Is patient prescribed a controlled substance at d/c from ED?: No Referrals: Darren Hannon MD [Primary Care Provider] - 1-2 days - Out of Hospital Transfer - Req. Specs Out of Hospital Transfer - Requested Specifics: Other Non-Acute ([facility])
[2023-12-30 04:38] LABS: ALT 18 U/L (4-34); AST 25 U/L (14-36); African American GFR (CKD) >90 (>60 ml/min/1.73 sqM); Albumin 5.1 g/dL (3.5-5.0); Alkaline Phosphatase 119 U/L (38-126); Amylase 70 U/L (30-110); Anion Gap 10 mmol/L; Blood Urea Nitrogen 19 mg/dL (7-17); Calcium 9.8 mg/dL (8.4-10.2); Carbon Dioxide 25 mmol/L (22-30); Chloride 100 mmol/L (98-107); Glucose 114 mg/dL (74-99); Lipase 179 U/L (23-300); Non-African American GFR(CKD) >90 (>60 ml/min/1.73 sqM); Potassium 4.5 mmol/L (3.5-5.1); Sodium 135 mmol/L (137-145); Total Bilirubin 1.1 mg/dL (0.2-1.3); Total Protein 8.6 g/dL (6.3-8.2)
[2023-12-30] MEDS: LORazepam 2 MG/ML INJ IV STA (06:24)
[2023-12-30 07:52] VITALS: BP 131/88; PULSE 84; RESP 16; TEMP 97.8
== END 2023-12-30 07:57 | disposition other institution (70) ==
LOC: EC 03:35
DX: F11.23 Opioid dependence with withdrawal (principal); R11.2 Nausea with vomiting, unspecified
CPT/HCPCS: 36415; 80053; 82150; 83690; 85025; 81001; 99284; 96374; 96375 ×2; 96361 ×4; J2060; J2765; J2405